=== PATIENT | male | born 1970 | race Caucasian/White ===

== ENCOUNTER 2017-01-01 14:40 | Emergency (ER) | payer MEDICARE, MEDICAID ==
[~2017-01-01] VITALS: Ht 175.3 cm; Wt 91.6 kg
[2017-01-01] MEDS ORDERED: CLIN150C17 (15:00)
[2017-01-01] MEDS ORDERED: DIAZ2TAB2 (15:00)
[2017-01-01] MEDS ORDERED: CITA40TA11 (15:00)
[2017-01-01] MEDS ORDERED: RANI150T11 (15:00)
[2017-01-01] MEDS ORDERED: POTA20TA15 (15:00)
[2017-01-01] MEDS ORDERED: LAMO200T (15:00)
[2017-01-01] MEDS ORDERED: CARV6.252 (15:00)
[2017-01-01] MEDS ORDERED: BENZTROPINE (15:00)
[2017-01-01] MEDS ORDERED: BUSP10TA95 (15:00)
[2017-01-01] MEDS ORDERED: MESA0.37 (15:00)
[2017-01-01] MEDS ORDERED: OMEP40CA36 (15:00)
[2017-01-01] MEDS ORDERED: THIO50TA (15:00)
[2017-01-01] MEDS ORDERED: WARF1TAB6 (15:00)
[2017-01-01] MEDS ORDERED: TRAZ150T72 (15:00)
--- NOTE | 2017-01-01 15:01 | ED Lower Extremity ---
General Chief Complaint: Lower Extremity Stated Complaint: SPIDER BITE L LEG Nursing Triage Note: ARRIVED VIA AMB TO ROOM 06. STATES A MONTH AGO A BLISTER FORMED ON HIS LEFT LOWER LEG. HAS BEEN SEEN TWICE AND HAS BEEN ON TWO DIFFERENT ANTIBIOTICS AND HE DOES NOT THINK IT IS GETTING BETTER. STATES IT WAS DX A SPIDER BITE. Nursing Sepsis Screen: No Definite Risk Source: patient Exam Limitations: no limitations History of Present Illness Time seen by provider: 15:01 Initial Comments PATIENT PRESENTS TO THE ED WITH C/O A WOUND OF THE LLE. 1 MO AGO PATIENT NOTICED A BLISTER ON THE LLE. WAS TOLD BY HIS PCP THAT IT WAS A SPIDER BITE. HE HAS COMPLETED 2 ROUNDS OF AUGMENTIN AND IS NOW ON CLEOCIN 150 MG TID. PATIENT HAS A H/O DVT IN THE LLE. Onset: other (1 MONTH) Pain/Injury Location: left leg Method of Injury: unknown ((POSSIBLE SPIDER BITE)) Modifying Factors: Worse With Other (NO IMPROVEMENT WITH ANTIBIOTICS) Allergies and Home Medications Allergies Coded Allergies: codeine (Verified Allergy, Severe, RASH, 01/01/17) Home Medications Buspirone HCl 10 Mg Tablet, #90 (Reported) Carvedilol 6.25 Mg Tablet, #180 (Reported) Citalopram Hydrobromide 40 Mg Tablet, #30 (Reported) Clindamycin HCl 150 Mg Capsule, #30 (Reported) Clindamycin HCl 300 Mg Capsule, 300 MG PO QID, #28 Ref 0 Prescribed by: ROBERTA NATH on 01/01/17 1521 Dapsone 25 Mg Tablet, 50 MG PO BID, #20 Ref 0 Prescribed by: ROBERTA NATH on 01/01/17 1521 Diazepam 2 Mg Tablet, #60 (Reported) Lamotrigine 200 Mg Tablet, #30 (Reported) Mesalamine 0.375 Gm Cap.er.24h, #120 (Reported) Omeprazole 40 Mg Capsule.dr, #30 (Reported) Oxycodone HCl/Acetaminophen 1 Each Tablet, 1 EACH PO Q4H PRN for pain, #14 Ref 0 Prescribed by: ROBERTA NATH on 01/01/17 1521 Potassium Chloride 20 Meq Tab.er.prt, #90 (Reported) Ranitidine HCl 150 Mg Tablet, #180 (Reported) Thioridazine HCl 50 Mg Tablet, #90 (Reported) Trazodone HCl 150 Mg Tablet, #30 (Reported) Warfarin Sodium 1 Mg Tablet, #120 (Reported) [Benztropine] , #60 (Reported) Constitutional: No chills, No fever, No malaise EENTM: no symptoms reported Respiratory: No cough, No dyspnea on exertion, No orthopnea, No short of breath Cardiovascular: No chest pain, No palpitations Gastrointestinal: no symptoms reported Skin: see HPI, change in color (REDNESS LLE), lesions Psychiatric/Neurological: No Symptoms Reported All Other Systems Reviewed Negative Unless Noted: Yes (Negative excepted noted.) Past Cyulmlu-Aiprap-Yipfog Hx Patient Social History Alcohol Use: Occasionally Uses Recreational Drug Use: No Smoking Status: Current Everyday Smoker Recent Foreign Travel: No Contact w/Someone Who Travel: No Recent Infectious Disease Expo: No Recent Hopitalizations: Yes Surgeries HX Surgeries: Yes Respiratory Hx Respiratory Disorders: Yes Respiratory Disorders: Pulmonary Embolism Cardiovascular Hx Cardiac Disorders: Yes Cardiac Disorders: Deep Vein Thrombosis Neurological Hx Neurological Disorders: No Gastrointestinal Hx Gastrointestinal Disorders: No Musculoskeletal Hx Musculoskeletal Disorders: Yes Musculoskeletal Disorders: Chronic Back Pain Psychosocial Hx Psychiatric Problems: Yes Behavioral Health Disorders: PTSD, Bipolar, Schizophrenia Reviewed Nursing Assessment Reviewed/Agree w Nursing PMH: Yes Family Medical History Significant Family History: DVT/PE Physical Exam Vital Signs Vital Sign - Last 12Hours 01/01/17 14:45 Temp 98.0 Pulse 77 Resp 18 B/P (MAP) 134/89 Pulse Ox 98 Capillary Refill : Less Than 3 Seconds General Appearance: WD/WN, no apparent distress HEENT: PERRL/EOMI, pharynx normal Neck: supple, normal inspection Cardiovascular: normal peripheral pulses, regular rate, rhythm, no murmur Respiratory: lungs clear, normal breath sounds, no respiratory distress, no accessory muscle use Gastrointestinal: normal bowel sounds, non tender, soft Back: normal inspection Hips: bilateral hip non-tender, bilateral hip normal inspection, bilateral hip normal range of motion, bilateral hip no evidence of injury Legs: right leg non-tender, right leg normal inspection, bilateral leg normal range of motion, bilateral leg no evidence of injury, left leg other (2X1.5 CM ULCER WTIH SURROUNDING ERYTHEMA AND WARMTH (CONSISTENT WITH A VENOUS STASIS ULCER) OF THE ANTERIOR DISTAL LLE. NO DRAINAGE NOTED.) Knees: bilateral knee non-tender, bilateral knee normal inspection, bilateral knee normal range of motion, bilateral knee no evidence of injury Ankles: bilateral ankle non-tender, right ankle normal inspection, bilateral ankle normal range of motion, bilateral ankle no evidence of injury, left ankle swelling Feet: bilateral foot non-tender, right foot normal inspection, bilateral foot normal range of motion, bilateral foot no evidence of injury, left foot swelling Neurologic/Tendon: normal sensation, normal motor functions, normal tendon functions, responds to pain, no evidence tendon injury Neurologic/Psychiatric: no motor/sensory deficits, alert, normal mood/affect, oriented x 3 Skin: normal color, warm/dry, other (2X1.5 CM ULCER WTIH SURROUNDING ERYTHEMA AND WARMTH (CONSISTENT WITH A VENOUS STASIS ULCER) OF THE ANTERIOR DISTAL LLE. NO DRAINAGE NOTED.) Progress/Results/Core Measures Results/Orders My Orders Orders - ROBERTA NATH Oxycodone/Apap 5/325mg Tablet (Percocet (01/01/17 15:14) Clindamycin Capsule (Cleocin Capsule) (01/01/17 15:15) Vital Signs/I&O Vital Sign - Last 12Hours 01/01/17 01/01/17 14:45 15:25 Temp 98.0 Pulse 77 77 Resp 18 16 B/P (MAP) 134/89 Pulse Ox 98 98 Blood Pressure Mean: 104 Departure Communication Progress Notes Patient seen and evaluated. Exam findings and history consistent with venous stasis ulcer with cellulitis. Patient follow-up with Dr. Hooper as an outpatient for recheck. Impression Impression: Primary Impression: Cellulitis Qualified Codes: L03.116 - Cellulitis of left lower limb Additional Impression: Venous stasis ulcer Qualified Codes: I87.2 - Venous insufficiency (chronic) (peripheral); L97.821 - Non-pressure chronic ulcer of other part of left lower leg limited to breakdown of skin Disposition: 01 HOME, SELF-CARE Condition: Improved Departure-Patient Inst. Decision time for Depature: 15:16 Referrals: ISABELLE HOOPER DO (PCP/Family) Primary Care Physician Patient Instructions: Cellulitis (Skin Infection), Adult (DC) Add. Discharge Instructions: All discharge instructions reviewed with patient and/or family. Voiced understanding. Medications as directed. Increase clindamycin to 300 mg by mouth four times daily. Elevate the left leg on pillows above the level of the heart. Shower with antibacterial soap. Apply iodine to the wound twice daily. Follow-up with Dr. Hooper this week for recheck. Return to the emergency department for worsened pain, redness, fever, drainage, or any other concerns. Scripts Dapsone (Dapsone) 25 Mg Tablet 50 MG PO BID, #20 TAB 0 Refills Prov: ROBERTA NATH 01/01/17 Clindamycin HCl (Cleocin HCl) 300 Mg Capsule 300 MG PO QID, #28 CAP 0 Refills Prov: ROBERTA NATH 01/01/17 Oxycodone HCl/Acetaminophen (Oxycodone-Acetaminophen 5-325) 1 Each Tablet 1 EACH PO Q4H Y for pain, #14 TAB 0 Refills Prov: ROBERTA NATH 01/01/17 Images Extremities-Lower 1 - Other-See Progress Note ROBERTA NATH Jan 01, 2017 15:01
[2017-01-01] MEDS ORDERED: oxyCODONE/APAP 5/325MG (PERCOCET 5) TABLET PO STA (15:14)
[2017-01-01] MEDS ORDERED: CLINDAMYCIN 150 MG (CLEOCIN) CAP PO ONE (15:15)
[2017-01-01] MEDS ORDERED: DAPS25TA2 PO (15:21)
[2017-01-01] MEDS ORDERED: CLIN300C3 PO (15:21)
[2017-01-01] MEDS ORDERED: OXYC-471 PO (15:21)
[2017-01-01 15:25] VITALS: BP 148/88
== END 2017-01-01 15:25 | disposition home or self-care (01) ==
LOC: EDUNIT# 14:40 → ER 14:42
DX: L03.116 Cellulitis of left lower limb (principal); L97.921 Non-pressure chronic ulcer of unspecified part of left lower leg limited to breakdown of skin; F43.10 Post-traumatic stress disorder, unspecified; F31.9 Bipolar disorder, unspecified; F20.9 Schizophrenia, unspecified; F17.200 Nicotine dependence, unspecified, uncomplicated; Z79.01 Long term (current) use of anticoagulants
CPT/HCPCS: 99283

== ENCOUNTER → 2017-01-18 | Outpatient (CLI) | payer MEDICARE, MEDICAID ==
[~2017-01-18] MED LIST: BENZTROPINE; BUSP10TA95; CARV6.252; CITA40TA11; CLIN150C17; CLIN300C3 PO; DAPS25TA2 PO; DIAZ2TAB2; LAMO200T; MESA0.37; OMEP40CA36; OXYC-471 PO; POTA20TA15; RANI150T11; THIO50TA; TRAZ150T72; WARF1TAB6
== END ==
LOC: WOUNDCARE 13:53
PROVIDERS: ATTEND Surgery
DX: L97.222 Non-pressure chronic ulcer of left calf with fat layer exposed (principal); I87.332 Chronic venous hypertension (idiopathic) with ulcer and inflammation of left lower extremity; I70.242 Atherosclerosis of native arteries of left leg with ulceration of calf; D68.51 Activated protein C resistance; T65.222A Toxic effect of tobacco cigarettes, intentional self-harm, initial encounter
CPT/HCPCS: 11042; 87070; 87075; 87205

== ENCOUNTER → 2017-01-18 | Outpatient (CLI) | payer MEDICARE, MEDICAID ==
[2017-01-18 16:13] LABS: BASOPHILS # (AUTO) 0.2 10^3/uL (0.0-0.1); BASOPHILS % (AUTO) 2 % (0-10); EOSINOPHILS # (AUTO) 0.5 10^3/uL (0.0-0.3); EOSINOPHILS % (AUTO) 4 % (0-10); LYMPHOCYTES # (AUTO) 5.5 X 10^3 (1.0-4.0); LYMPHOCYTES % (AUTO) 43 % (12-44); MEAN CORPUSCULAR HEMOGLOBIN 27 PG (25-34); MEAN CORPUSCULAR HGB CONC 35 G/DL (32-36); MEAN CORPUSCULAR VOLUME 79 FL (80-99); MEAN PLATELET VOLUME 9.2 FL (7.4-10.4); MONOCYTES # (AUTO) 1.6 X 10^3 (0.0-1.0); MONOCYTES % (AUTO) 13 % (0-12); NEUTROPHILS # (AUTO) 4.9 X 10^3 (1.8-7.8); NEUTROPHILS % (AUTO) 39 % (42-75); PLATELET COUNT 512 10^3/uL (130-400); RED CELL DISTRIBUTION WIDTH 17.8 % (10.0-14.5); WHITE BLOOD COUNT 12.8 10^3/uL (4.3-11.0)
[2017-01-18 16:38] LABS: ALANINE AMINOTRANSFERASE 15 U/L (0-55); ALBUMIN 3.6 GM/DL (3.2-4.5); ANION GAP 11 MMOL/L (5-14); ASPARTATE AMINO TRANSFERASE 19 U/L (5-34); BILIRUBIN,TOTAL 0.6 MG/DL (0.1-1.0); BLOOD UREA NITROGEN 6 MG/DL (7-18); BUN/CREATININE RATIO 6; CARBON DIOXIDE 27 MMOL/L (21-32); CHLORIDE 99 MMOL/L (98-107); CREATININE SERUM 0.99 MG/DL (0.60-1.30); GFR ESTIMATED > 60; GLUCOSE 86 MG/DL (70-105); POTASSIUM 4.1 MMOL/L (3.6-5.0); SODIUM 137 MMOL/L (135-145); TOTAL PROTEIN 7.4 GM/DL (6.4-8.2)
== END ==
LOC: LAB 15:49
PROVIDERS: ATTEND Surgery
DX: L97.222 Non-pressure chronic ulcer of left calf with fat layer exposed (principal); I87.332 Chronic venous hypertension (idiopathic) with ulcer and inflammation of left lower extremity; I70.242 Atherosclerosis of native arteries of left leg with ulceration of calf; D68.51 Activated protein C resistance; F17.210 Nicotine dependence, cigarettes, uncomplicated
CPT/HCPCS: 36415; 80053; 85025

== ENCOUNTER → 2017-01-30 | Outpatient (CLI) | payer MEDICARE, MEDICAID | LOC: WOUNDCARE 10:10 | PROVIDERS: ATTEND Surgery | DX: L97.222 Non-pressure chronic ulcer of left calf with fat layer exposed (principal); I87.332 Chronic venous hypertension (idiopathic) with ulcer and inflammation of left lower extremity; I70.242 Atherosclerosis of native arteries of left leg with ulceration of calf; D68.51 Activated protein C resistance; T65.222A Toxic effect of tobacco cigarettes, intentional self-harm, initial encounter | CPT/HCPCS: 11042 ==

== ENCOUNTER → 2017-02-01 | Outpatient (CLI) | payer MEDICARE, MEDICAID ==
--- NOTE | 2017-02-01 18:31 | Diagnostic Imaging Report ---
PROCEDURE: US Bilateral lower extremity arterial. TECHNIQUE: Multiple real-time grayscale images are obtained through both lower extremity arterial systems with color Doppler imaging and color Doppler spectral analysis. INDICATION: 46-year-old male with osteoporosis, left leg wound. COMPARISONS: None. TECHNIQUE: There is triphasic flow in the common femoral and superficial femoral arteries bilaterally with biphasic flow in the profunda femoris. There is biphasic flow in both popliteal arteries, anterior tibial and posterior tibial arteries. Minimal segmental plaquing is seen but no evidence of hemodynamically significant stenosis present. IMPRESSION: Triphasic and biphasic nonflow-limiting flow seen in both lower extremities. Dictated by: Dictated on workstation # [id number]
== END ==
LOC: RAD 16:44
PROVIDERS: ATTEND Surgery
DX: L97.222 Non-pressure chronic ulcer of left calf with fat layer exposed (principal); I87.332 Chronic venous hypertension (idiopathic) with ulcer and inflammation of left lower extremity; I70.242 Atherosclerosis of native arteries of left leg with ulceration of calf; D68.51 Activated protein C resistance; Z72.0 Tobacco use
CPT/HCPCS: 93925

== ENCOUNTER → 2017-02-06 | Outpatient (CLI) | payer MEDICARE, MEDICAID | LOC: WOUNDCARE 11:16 | PROVIDERS: ATTEND Surgery | DX: L97.222 Non-pressure chronic ulcer of left calf with fat layer exposed (principal); I87.332 Chronic venous hypertension (idiopathic) with ulcer and inflammation of left lower extremity; D68.51 Activated protein C resistance; T65.222A Toxic effect of tobacco cigarettes, intentional self-harm, initial encounter | CPT/HCPCS: 11042 ==

== ENCOUNTER → 2017-02-13 | Outpatient (CLI) | payer MEDICARE, MEDICAID | LOC: WOUNDCARE 11:42 | PROVIDERS: ATTEND Surgery | DX: L97.222 Non-pressure chronic ulcer of left calf with fat layer exposed (principal); I87.332 Chronic venous hypertension (idiopathic) with ulcer and inflammation of left lower extremity; D68.51 Activated protein C resistance; T65.222A Toxic effect of tobacco cigarettes, intentional self-harm, initial encounter | CPT/HCPCS: 11042 ==

== ENCOUNTER → 2017-02-20 | Outpatient (CLI) | payer MEDICARE, MEDICAID | LOC: WOUNDCARE 11:23 | PROVIDERS: ATTEND Surgery | DX: L97.222 Non-pressure chronic ulcer of left calf with fat layer exposed (principal); I87.332 Chronic venous hypertension (idiopathic) with ulcer and inflammation of left lower extremity; D68.51 Activated protein C resistance; T65.222A Toxic effect of tobacco cigarettes, intentional self-harm, initial encounter | CPT/HCPCS: 99212 ==

== ENCOUNTER 2019-11-25 18:30 | Inpatient (IN) | payer MEDICARE, MEDICAID ==
[~2019-11-25] VITALS: Ht 175.3 cm; Wt 74.6 kg
[~2019-11-25 18:30] MED LIST changes: -LAMO200T; +LAMO200T5; +OMEP40CA27; -OMEP40CA36; -WARF1TAB6; +WARF1TAB82
[2019-11-25] MEDS ORDERED: ASPIRIN 81 MG CHEW (CHILDREN'S ASA) PO ONE (18:45)
--- NOTE | 2019-11-25 18:56 | ED EENT ---
History of Present Illness General Stated Complaint: SOA Source: patient Exam Limitations: no limitations History of Present Illness Date Seen by Provider: Nov 25, 2019 Time Seen by Provider: 18:54 Initial Comments To ER with reports of shortness of breath for the past few days. He was diagnosed with thrush and strep throat, given 3 different antibiotics but no improvement. He's been swabbed for Covid twice, the first one negative. Today he noticed some unusual sounds when he was breathing. He is unable to eat because he begins to choke when he tries to swallow, he feels a lump in his throat. Timing/Duration: last week Severity: moderate Associated Symptoms: poor fluid intake, poor solids intake Allergies and Home Medications Allergies Coded Allergies: codeine (Verified Allergy, Severe, RASH, 01/01/17) Home Medications Clindamycin HCl 300 Mg Capsule, 300 MG PO QID Prescribed by: ROBERTA NATH on 01/01/17 1521 Dapsone 25 Mg Tablet, 50 MG PO BID Prescribed by: ROBERTA NATH on 01/01/17 1521 Oxycodone HCl/Acetaminophen 1 Each Tablet, 1 EACH PO Q4H PRN for pain Prescribed by: ROBERTA NATH on 01/01/17 1521 Patient Home Medication List Home Medication List Reviewed: Yes Review of Systems Review of Systems Constitutional: see HPI Eyes: No Symptoms Reported Nose: no symptoms reported Mouth: no symptoms reported Throat: see HPI Respiratory: no symptoms reported Cardiovascular: no symptoms reported Musculoskeletal: no symptoms reported Skin: no symptoms reported Neurological: No Symptoms Reported Hematologic/Lymphatic: No Symptoms Reported Immunological/Allergic: no symptoms reported Past Zhbnhqv-Cavhil-Fasjis Hx Patient Social History Recent Hopitalizations: Yes Past Medical History Surgeries: Yes (SPLEENECTOMY, VENA CAVA FILTER) Respiratory: No Pulmonary Embolism Cardiac: No Deep Vein Thrombosis Neurological: No Genitourinary: No Gastrointestinal: No Musculoskeletal: Yes Chronic Back Pain Endocrine: No Cancer: No Psychosocial: Yes PTSD, Bipolar, Schizophrenia Family Medical History DVT/PE Physical Exam Vital Signs Vital Signs - First Documented 11/25/19 18:43 Temp 37.3 Pulse 110 Resp 30 B/P (MAP) 181/102 (128) Pulse Ox 97 O2 Delivery Nasal Cannula O2 Flow Rate 2.00 Height, Weight, BMI Height: 5'9.00" Weight: 202lbs. oz. 91.878046qr; BMI Method:Stated General Appearance: WD/WN, moderate distress (low pitched inspiratory stridor. Breathing easier leaning forward, no drooling and he does swallow his own secretions but when given a glass of water he begins choking on it when he attempts to swallow. Concern for epiglottitis. Racemic epinephrine and Solu- Medrol ordered.) Eyes: bilateral eye normal inspection, bilateral eye PERRL, bilateral eye EOMI Ears: bilateral ear auricle normal, bilateral ear canal normal, bilateral ear TM normal Mouth/Throat: normal mouth inspection, pharynx normal Neck: non-tender, full range of motion Gastrointestinal: normal bowel sounds, non tender Neurologic/Psychiatric: alert, normal mood/affect, oriented x 3 Skin: normal color, warm/dry Progress/Results/Core Measures Results/Orders Lab Results Laboratory Tests Test 11/25/19 18:46 11/25/19 18:51 11/25/19 22:42 11/25/19 22:45 Range/Units White Blood Count 24.1 H 4.3-11.0 10^3/uL Red Blood Count 5.30 4.35-5.85 10^6/uL Hemoglobin 14.4 13.3-17.7 G/DL Hematocrit 40 40-54 % Mean Corpuscular Volume 76 L 80-99 FL Mean Corpuscular Hemoglobin 27 25-34 PG Mean Corpuscular Hemoglobin Concent 36 32-36 G/DL Red Cell Distribution Width 16.7 H 10.0-14.5 % Platelet Count 453 H 130-400 10^3/uL Mean Platelet Volume 12.4 H 7.4-10.4 FL Neutrophils (%) (Auto) 75 42-75 % Lymphocytes (%) (Auto) 13 12-44 % Monocytes (%) (Auto) 11 0-12 % Eosinophils (%) (Auto) 1 0-10 % Basophils (%) (Auto) 0 0-10 % Neutrophils # (Auto) 18.0 H 1.8-7.8 X 10^3 Lymphocytes # (Auto) 3.2 1.0-4.0 X 10^3 Monocytes # (Auto) 2.7 H 0.0-1.0 X 10^3 Eosinophils # (Auto) 0.1 0.0-0.3 10^3/uL Basophils # (Auto) 0.1 0.0-0.1 10^3/uL Neutrophils % (Manual) 78 % Lymphocytes % (Manual) 13 % Monocytes % (Manual) 8 % Band Neutrophils 1 % [place] Cells SLIGHT Prothrombin Time 26.3 H 12.2-14.7 SEC INR Comment 2.4 H 0.8-1.4 Activated Partial Thromboplast Time 49 H 24-35 SEC D-Dimer 0.35 0.00-0.49 UG/ML Sodium Level 136 135-145 MMOL/L Potassium Level 3.8 3.6-5.0 MMOL/L Chloride Level 96 L 98-107 MMOL/L Carbon Dioxide Level 24 21-32 MMOL/L Anion Gap 16 H 5-14 MMOL/L Blood Urea Nitrogen 7 7-18 MG/DL Creatinine 0.80 0.60-1.30 MG/DL Estimat Glomerular Filtration Rate > 60 BUN/Creatinine Ratio 9 Glucose Level 417 *H 70-105 MG/DL Calcium Level 10.0 8.5-10.1 MG/DL Corrected Calcium 10.1 8.5-10.1 MG/DL Magnesium Level 2.0 1.6-2.4 MG/DL Total Bilirubin 0.8 0.1-1.0 MG/DL Aspartate Amino Transf (AST/SGOT) 20 5-34 U/L Alanine Aminotransferase (ALT/SGPT) 26 0-55 U/L Alkaline Phosphatase 170 H 40-136 U/L Myoglobin 61.8 10.0-92.0 NG/ML Troponin I < 0.028 <0.028 NG/ML B-Type Natriuretic Peptide 117.6 H <100.0 PG/ML Total Protein 7.9 6.4-8.2 GM/DL Albumin 3.9 3.2-4.5 GM/DL Blood Gas Puncture Site RIGHT RADIAL Blood Gas Patient Temperature 37.3 Arterial Blood pH 7.40 7.37-7.43 Arterial Blood Partial Pressure CO2 48 H 35-45 MMHG Arterial Blood Partial Pressure O2 66 L 79-93 MMHG Arterial Blood HCO3 30 H 23-27 MMOL/L Arterial Blood Total CO2 31.4 H 21.0-31.0 MMOL/L Arterial Blood Oxygen Saturation 92 L 94-100 % Arterial Blood Base Excess 5.1 H -2.5-2.5 MMOL/L Joshua Test POSITIVE Blood Gas Ventilator Setting NO Blood Gas Inspired Oxygen 2 Glucometer 358 H 70-110 MG/DL Urine Color YELLOW Urine Clarity CLEAR Urine pH 5.5 5-9 Urine Specific [place] <=1.005 1.016-1.022 Urine Protein TRACE H NEGATIVE Urine Glucose (UA) 3+ H NEGATIVE Urine Ketones 3+ H NEGATIVE Urine Nitrite NEGATIVE NEGATIVE Urine Bilirubin NEGATIVE NEGATIVE Urine Urobilinogen 0.2 < = 1.0 MG/DL Urine Leukocyte Esterase NEGATIVE NEGATIVE Urine RBC (Auto) 1+ H NEGATIVE Urine RBC RARE /HPF Urine WBC NONE /HPF Urine Crystals NONE /LPF Urine Bacteria NEGATIVE /HPF Urine Casts NONE /LPF Urine Mucus NEGATIVE /LPF Urine Culture Indicated NO Urine Opiates Screen POSITIVE H NEGATIVE Urine Oxycodone Screen NEGATIVE NEGATIVE Urine Methadone Screen NEGATIVE NEGATIVE Urine Propoxyphene Screen NEGATIVE NEGATIVE Urine Barbiturates Screen NEGATIVE NEGATIVE Ur Tricyclic Antidepressants Screen NEGATIVE NEGATIVE Urine Phencyclidine Screen NEGATIVE NEGATIVE Urine Amphetamines Screen NEGATIVE NEGATIVE Urine Methamphetamines Screen NEGATIVE NEGATIVE Urine Benzodiazepines Screen POSITIVE H NEGATIVE Urine Cocaine Screen NEGATIVE NEGATIVE Urine Cannabinoids Screen POSITIVE H NEGATIVE Test 11/25/19 22:58 Range/Units Lactic Acid Level 1.01 0.50-2.00 MMOL/L My Orders Orders - VALENTIN GUERRERO [employer]ATOR Cbc With Automated Diff (11/25/19 18:35) Magnesium (11/25/19 18:35) Chest 1 View, Ap/Pa Only (11/25/19 18:35) Ekg Tracing (11/25/19 18:35) Comprehensive Metabolic Panel (11/25/19 18:35) Myoglobin Serum (11/25/19 18:35) Protime With Inr (11/25/19 18:35) Partial Thromboplastin Time (11/25/19 18:35) O2 (11/25/19 18:35) Monitor-Rhythm Ecg Trace Only (11/25/19 18:35) Lipid Panel (11/26/19 06:00) Ed Iv/Invasive Line Start (11/25/19 18:35) BNP (11/25/19 18:35) Fibrin Degradation Products (11/25/19 18:35) Aspirin Chewable Tablet (Baby Aspirin Ch (11/25/19 18:45) Rt Epinephrine (Racemic Epinephrine 2.25 (11/25/19 19:00) Methylprednisolone Sod Succ (Solu-Medrol (11/25/19 19:00) Lorazepam Injection (Ativan Injection) (11/25/19 19:00) Soft Tissue Neck (11/25/19 18:57) Iohexol Injection (Omnipaque 350 Mg/Ml 1 (11/25/19 19:00) Received Contrast (Hold Metformin- Contr (11/25/19 19:00) Ns (Ivpb) (Sodium Chloride 0.9% Ivpb Bag (11/25/19 19:00) Ceftriaxone For Iv Use (Rocephin For I (11/25/19 19:00) Arterial Blood Gas (11/25/19 18:51) Troponin I (11/25/19 18:46) Manual Differential (11/25/19 18:46) Ns Iv 1000 Ml (Sodium Chloride 0.9%) (11/25/19 19:30) Ct Neck (Soft Tissue) W (11/25/19 19:36) Lidocaine 4% 5 Ml (Xylocaine 4%) (11/25/19 20:15) Succinylcholine Injection (Succinylcholi (11/25/19 20:02) Propofol Injection (Diprivan Injection) (11/25/19 20:02) Ketamine Syringe (Ed Only) (Ketamine Syr (11/25/19 20:03) Medications Given in ED Current Medications Medications Dose Ordered Sig/Anatoly Route Start Time Stop Time Status Last Admin Dose Admin Aspirin 324 mg ONCE ONCE PO 11/25/19 18:45 11/25/19 18:46 DC 11/25/19 18:50 324 MG Ceftriaxone Sodium 2000 mg/ Sterile Water 20 ml @ 240 mls/hr ONCE ONCE IV 11/25/19 19:00 11/25/19 19:04 DC 11/25/19 19:37 240 MLS/HR Epinephrine 0.25 ml ONCE ONCE INH 11/25/19 19:00 11/25/19 19:01 DC 11/25/19 18:57 0.25 ML Iohexol 75 ml ONCE ONCE IV 11/25/19 19:00 11/25/19 19:01 DC 11/25/19 20:53 75 ML Lorazepam 0.5 mg ONCE PRN IVP 11/25/19 19:00 11/25/19 19:04 0.5 MG Methylprednisolone Sodium Succinate 125 mg ONCE ONCE IVP 11/25/19 19:00 11/25/19 19:01 DC 11/25/19 18:57 125 MG Sodium Chloride 100 ml ONCE ONCE IV 11/25/19 19:00 11/25/19 19:01 DC 11/25/19 20:53 100 ML Vital Signs/I&O 11/25/19 11/25/19 11/25/19 11/25/19 18:43 18:45 20:30 21:05 Temp 37.3 37.3 Pulse 110 105 92 Resp 30 25 B/P (MAP) 181/102 (128) 157/85 (128) Pulse Ox 97 97 92 O2 Delivery Nasal Cannula Nasal Cannula Nasal Cannula O2 Flow Rate 2.00 2.00 2.00 11/25/19 11/25/19 11/25/19 11/25/19 21:15 21:30 21:45 22:00 Temp 36.6 Pulse 96 92 89 86 Resp 34 23 36 36 B/P (MAP) 122/85 (97) 174/84 (114) 147/75 (99) 148/71 (96) Pulse Ox 96 94 95 96 O2 Delivery Nasal Cannula Nasal Cannula Nasal Cannula Nasal Cannula O2 Flow Rate 1.00 1.00 1.00 1.00 Departure Communication (Admissions) [facility], [place] NAME: [facility] REC#: [id number] PT STATUS: ADM IN : 1970 PHYSICIAN: VALENTIN GUERRERO APRN ADMIT DATE: 11/25/19/ICU Signed Date of Exam:11/25/19 CT NECK (SOFT TISSUE) W PROCEDURE: CT neck soft tissue with contrast. TECHNIQUE: Multiple contiguous axial images were obtained through the neck after the administration of contrast. Auto Exposure Controls were utilized during the CT exam to meet ALARA standards for radiation dose reduction. INDICATION: Shortness of air, sore throat COMPARISON: Radiographs from the same date FINDINGS: Parapharyngeal fat is symmetric and well-maintained. The visualized salivary glands are unremarkable. The thyroid gland is unremarkable. The epiglottis is mildly prominent. Small gas collection is identified adjacent to the trachea and esophagus on the right, best seen on series 4, image 67. No definitive connection to either the trachea or esophagus is present, though this appears to conform more to the shape of the esophagus. The true and false vocal cords are unremarkable. Mild mural thickening is noted associated with the most superior aspect of the cervical esophagus with associated small amount of internal fluid. 1.3 x 0.5 cm fluid collection is noted at the expected location of the most proximal esophagus. Mildly prominent bilateral cervical lymph nodes, particularly level II B lymph nodes are present bilaterally. This includes a lymph node on the right which measures up to 2.6 cm near the carotid bifurcation. No additional retropharyngeal fluid collection. No peritonsillar fluid collection. Noncalcified plaque within the left common carotid artery with approximately 40% narrowing. 1.3 cm irregular nodular density within the right upper lobe with extension to the pleural surface. No pneumothorax. Scattered osseous degenerative changes without acute osseous abnormality. Minimal opacification of some inferior left mastoid air cells. Otherwise, the visualized paranasal sinuses are clear. IMPRESSION: Mild mural thickening with associated fluid and edema associated with the most proximal aspect of the esophagus. This is associated with focal soft tissue gas immediately adjacent to the esophagus and trachea at this location. Therefore, this could relate to underlying injury/perforation involving the esophagus or trachea at this location. No definitive tract is identified on this examination. Fluoroscopic esophagram could be performed to evaluate if this relates to an underlying esophageal injury/perforation. Mildly prominent bilateral cervical lymph nodes. A 1.3 x 0.5 cm fluid collection is noted at the expected location of the most proximal esophagus. This is favored to relate to fluid within the esophagus. Phlegmon is an additional consideration. No internal gas to definitively suggest abscess. Additional findings as above. Findings discussed with Dr. Guerrero at 212 on 11/25/2019. Dictated by: Dictated on workstation # [id number] Dict: 11/25/192051 Trans: 11/25/192201 [facility] [id number] Interpreted by: PROSPER BAPTISTE MD Electronically signed by: PROSPER BAPTISTE MD 11/25/192201 ADDENDUM REPORT Impression: Laryngeal abscess is an additional consideration and actually the favored diagnosis. Given adjacent soft tissue gas, tiny esophageal or tracheal perforation should be considered. Otherwise, initial interpretation is unchanged. Findings discussed with Dr. Guerrero at 2206 on 11/25/2019. Dictated by: Dictated on workstation # [id number] Interpreted by: PROSPER BAPTISTE MD Electronically signed by: PROSPER BAPTISTE MD 11/25/19 2210 1937-given Solu-Medrol racemic epinephrine and 0.5 mg of lorazepam, still has low pitched inspiratory stridor. Now spitting into a bucket as he is unable to swallow. I've called [employer]. I planned to intubate but I would like to have them present as I anticipate a difficult airway 2099-Dr Mueller from anesthesia has been here, we reviewed the CT, looks like there is a bit of air parallel to the trachea not contained within the trachea or the esophagus. Because of the displaced anatomy of the airway on the sagittal views he would like to not intubate at this time. We could do a bedside trach but he is maintaining his own airway, talking, INR of 2.4. That being said he does still have some stridor though it has improved from time of arrival.. Will work on transfer to after discussion with Dr mazariegos. 2199- CTS service at capacity and unable to accept. [facility] has no ENT available and cant accept. 2214-spoke with Dr. Cosby from ER at [facility] and Dr. Easley from ENT who accepted the patient but because the patient is already admitted to ICU here He'll need to go to the lean facilitator service instead of ER to ER. Needs to go to a facility with both cardiothoracic and ear nose and throat services. 2234-[facility] called back after talking to the lean facilitator who reports that cardiothoracics does not do esophageal interventions there. I then called [facility] back to see if we could admit this to medicine consult ear nose and throat given the appearance of laryngeal abscess. They'll call me back. (Our ENT here Dr. Small is out of town for the next 48 hours) 2334-Dr Pierce at has accepted pt to MICU. will send by Air. Dr Pierce would also like flagyl. Impression Primary Impression: Airway compromise Additional Impression: Abscess of larynx Disposition: XFER SHT-TRM HOSP Condition: Stable Transfer Transfer Reason: Exceeds level of care Time Spoke to Accepting Phy: 22:16 Departure-Patient Inst. Referrals: ISABELLE REECE DO (PCP/Family) Primary Care Physician VALENTIN GUERRERO APRN Nov 25, 2019 18:56
[2019-11-25] MEDS ORDERED: IOHEXOL 350 MG/ML 100 ML (OMNIPAQUE 350) VIAL IV ONE (19:00)
[2019-11-25] MEDS ORDERED: cefTRIAXone FOR IV USE 2,000 MG in WATER (STERILE) FOR INJECTION 20 ML IV ONE (19:00)
[2019-11-25] MEDS ORDERED: RT-epiNEPHrine (RACEMIC) 2.25% 0.5 ML VIAL INH ONE (19:00)
[2019-11-25] MEDS ORDERED: HOLD METFORMIN - RECEIVED CONTRAST 20 ML VIAL IV SCH (19:00)
[2019-11-25] MEDS ORDERED: LORazepam INJ 2 MG/ML (ATIVAN) VIAL IVP PRN ×2 (19:00→23:45)
[2019-11-25] MEDS ORDERED: NS 100 ML (IVPB) BAG IV ONE (19:00)
[2019-11-25] MEDS ORDERED: methylPREDNISolone 125 MG (Solu-MEDROL) VIAL IVP ONE (19:00)
[2019-11-25 19:06] LABS: BASOPHILS # (AUTO) 0.1 10^3/uL (0.0-0.1); BASOPHILS % (AUTO) 0 % (0-10); EOSINOPHILS # (AUTO) 0.1 10^3/uL (0.0-0.3); EOSINOPHILS % (AUTO) 1 % (0-10); HEMATOCRIT 40 % (40-54); HEMOGLOBIN 14.4 G/DL (13.3-17.7); LYMPHOCYTES # (AUTO) 3.2 X 10^3 (1.0-4.0); LYMPHOCYTES % (AUTO) 13 % (12-44); MEAN CORPUSCULAR HEMOGLOBIN 27 PG (25-34); MEAN CORPUSCULAR HGB CONC 36 G/DL (32-36); MEAN CORPUSCULAR VOLUME 76 FL (80-99); MEAN PLATELET VOLUME 12.4 FL (7.4-10.4); MONOCYTES # (AUTO) 2.7 X 10^3 (0.0-1.0); MONOCYTES % (AUTO) 11 % (0-12); NEUTROPHILS % (AUTO) 75 % (42-75); PLATELET COUNT 453 10^3/uL (130-400); RED CELL DISTRIBUTION WIDTH 16.7 % (10.0-14.5); WHITE BLOOD COUNT 24.1 10^3/uL (4.3-11.0)
[2019-11-25 19:11] LABS: ABG BASE EXCESS 5.1 MMOL/L (-2.5-2.5); ABG OXYGEN SATURATION 92 % (94-100); ABG PCO2 48 MMHG (35-45); ABG PO2 66 MMHG (79-93); ABG TCO2 31.4 MMOL/L (21.0-31.0)
[2019-11-25 19:12] LABS: ALLENS TEST POSITIVE; INSPIRED O2 2; PATIENT TEMP 37.3; VENTILATOR NO
[2019-11-25 19:16] LABS: ALBUMIN 3.9 GM/DL (3.2-4.5); CHLORIDE 96 MMOL/L (98-107); POTASSIUM 3.8 MMOL/L (3.6-5.0); SODIUM 136 MMOL/L (135-145)
[2019-11-25 19:19] LABS: TOTAL PROTEIN 7.9 GM/DL (6.4-8.2)
[2019-11-25 19:20] LABS: CARBON DIOXIDE 24 MMOL/L (21-32); INR 2.4 (0.8-1.4); PROTHROMBIN TIME PATIENT 26.3 SEC (12.2-14.7)
[2019-11-25 19:21] LABS: BILIRUBIN,TOTAL 0.8 MG/DL (0.1-1.0)
[2019-11-25 19:22] LABS: ALKALINE PHOSPHATASE 170 U/L (40-136); GFR ESTIMATED > 60; GLUCOSE 417 MG/DL (70-105)
[2019-11-25 19:23] LABS: BUN/CREATININE RATIO 9
[2019-11-25 19:25] LABS: ALANINE AMINOTRANSFERASE 26 U/L (0-55)
[2019-11-25 19:27] LABS: BAND NEUTROPHILS 1 %; BURR CELLS SLIGHT; LYMPHOCYTES % (MANUAL) 13 %; MONOCYTES % (MANUAL) 8 %; NEUTROPHILS % (MANUAL) 78 %
[2019-11-25] MEDS ORDERED: NS IV 1000 ML 1,000 ML IV SCH (19:30)
--- NOTE | 2019-11-25 19:58 | NUR ---
ZURI Ansari et Dr. Strange in room with pt at this time discussing intubation procedure.
[2019-11-25] MEDS ORDERED: proPOfol 200 MG/20 ML (DIPRIVAN) VIAL IV ONE (20:02)
[2019-11-25] MEDS ORDERED: SUCCINYLCHOLINE INJ 100 MG/5 ML SYR ONE (20:02)
[2019-11-25] MEDS ORDERED: KETAMINE/NaCl 50 MG/5 ML SYRINGE (ED ONLY) ONE (20:03)
--- OUTSIDE RECORDS SUMMARY | 2019-11-25 20:08 | XMS REPORT | Continuity of Care Document ---
Author Organization Unknown Address Unknown Phone Unavailable Allergies Active Description Code Type Severity Reaction Onset Reported/Identified Relationship to Patient Clinical Status Yes codeine [id number] Drug Allergy Severe RASH 01/01/2017 Medications There is no data. 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 01/01/2017 ROBERTA ECKERT Ot F17.200 NICOTINE DEPENDENCE, UNSPECIFIED, UNCOMP 01/01/2017 ROBERTA ECKERT Ot F20.9 SCHIZOPHRENIA, UNSPECIFIED 01/01/2017 ROBERTA ECKERT Ot F31.9 BIPOLAR DISORDER, UNSPECIFIED 01/01/2017 ROBERTA ECKERT Ot F43.10 POST-TRAUMATIC STRESS DISORDER, UNSPECIF 01/01/2017 ROBERTA ECKERT Ot L03.116 CELLULITIS OF LEFT LOWER LIMB 01/01/2017 ROBERTA ECKERT Ot L97.921 NON-PRS CHR UL UNSP PRT OF L LOW LEG LI 01/01/2017 ROBERTA ECKERT Ot Z04.3 ENCOUNTER FOR EXAM AND OBSERVATION FOLLO 01/01/2017 ROBERTA ECKERT Ot Z79.01 [facility] (CURRENT) USE OF ANTICOAGULANT 01/25/2017 VINCENZO MORALES MD Ot D68.51 ACTIVATED PROTEIN C RESISTANCE 01/25/2017 VINCENZO MORALES MD Ot I70.242 [place] [place] ARTERIES OF LEFT LEG W ULC 01/25/2017 VINCENZO MORALES MD Ot I87.332 CHRONIC VENOUS HTN W ULCER AND INFLAMMAT 01/25/2017 VINCENZO MORALES MD Ot L97.222 NON-PRESSURE CHRONIC ULCER OF LEFT CALF 01/25/2017 VINCENZO MORALES MD Ot T65.222A TOXIC EFFECT OF TOBACCO CIGARETTES, SELF 01/30/2017 VINCENZO MORALES MD, Ot L97.222 NON-PRESSURE CHRONIC ULCER OF LEFT CALF 01/30/2017 Ot 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 01/30/2017 VINCENZO MORALES MD, Ot D68.51 ACTIVATED PROTEIN C RESISTANCE 01/30/2017 VINCENZO MORALES MD Ot I70.242 [place] [place] ARTERIES OF LEFT LEG W [facility] 01/30/2017 VINCENZO MORALES MD Ot I87.332 CHRONIC VENOUS HTN W ULCER AND INFLAMMAT 01/30/2017 VINCENZO MORALES MD Ot L97.222 NON-PRESSURE CHRONIC ULCER OF LEFT CALF 01/30/2017 VINCENZO MORALES MD Ot T65.222A TOXIC EFFECT OF TOBACCO CIGARETTES, SELF 01/30/2017 VINCENZO MORALES MD, Ot D68.51 ACTIVATED PROTEIN C RESISTANCE 01/30/2017 VINCENZO MORALES MD, Ot F17.210 NICOTINE DEPENDENCE, CIGARETTES, UNCOMPL 01/30/2017 VINCENZO MORALES MD, Ot I70.242 [place] ARTERIES OF LEFT LEG W [facility] 01/30/2017 VINCENZO MORALES MD Ot I87.332 CHRONIC VENOUS HTN W ULCER AND INFLAMMAT 01/30/2017 VINCENZO MORALES MD Ot L97.222 NON-PRESSURE CHRONIC ULCER OF LEFT CALF 01/30/2017 VINCENZO MORALES MD Ot L97.222 NON-PRESSURE CHRONIC ULCER OF LEFT CALF 01/31/2017 VINCENZO MORALES MD Ot L97.222 NON-PRESSURE CHRONIC ULCER OF LEFT CALF 01/31/2017 VINCENZO MORALES MD Ot L97.222 NON-PRESSURE CHRONIC ULCER OF LEFT CALF 02/01/2017 Ot 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 02/01/2017 VINCENZO MORALES MD, Ot D68.51 ACTIVATED PROTEIN C RESISTANCE 02/01/2017 VINCENZO MORALES MD Ot I70.242 [place] ARTERIES OF LEFT LEG W [facility] 02/01/2017 VINCENZO MORALES MD Ot I87.332 CHRONIC VENOUS HTN W ULCER AND INFLAMMAT 02/01/2017 VINCENZO MORALES MD Ot L97.222 NON-PRESSURE CHRONIC ULCER OF LEFT CALF 02/01/2017 VINCENZO MORALES MD, Ot T65.222A TOXIC EFFECT OF TOBACCO CIGARETTES, SELF 02/01/2017 VINCNEZO MORALES MD, Ot D68.51 ACTIVATED PROTEIN C RESISTANCE 02/01/2017 VINCENZO MORALES MD Ot F17.210 NICOTINE DEPENDENCE, CIGARETTES, UNCOMPL 02/01/2017 VINCENZO MORALES MD Ot I70.242 [place] ARTERIES OF LEFT LEG W [facility] 02/01/2017 VINCENZO MORALES MD, Ot I87.332 CHRONIC VENOUS HTN W ULCER AND INFLAMMAT 02/01/2017 VINCENZO MORALES MD, Ot L97.222 NON-PRESSURE CHRONIC ULCER OF LEFT CALF 02/01/2017 VINCENZO MORALES MD, Ot D68.51 ACTIVATED PROTEIN C RESISTANCE 02/01/2017 VINCENZO MORALES MD, Ot I70.242 [place] ARTERIES OF LEFT LEG W [facility] 02/01/2017 VINCENZO MORALES MD, Ot I87.332 CHRONIC VENOUS HTN W ULCER AND INFLAMMAT 02/01/2017 VINCENZO MORALES MD, Ot L97.222 NON-PRESSURE CHRONIC ULCER OF LEFT CALF 02/01/2017 VINCENZO MORALES MD, Ot T65.222A TOXIC EFFECT OF TOBACCO CIGARETTES, SELF 02/01/2017 VINCENZO MORALES MD, Ot L97.222 NON-PRESSURE CHRONIC ULCER OF LEFT CALF 02/06/2017 VINCENZO MORALES MD, Ot D68.51 ACTIVATED PROTEIN C RESISTANCE 02/06/2017 VINCENZO MORALES MD, Ot I70.242 [place] ARTERIES OF LEFT LEG W [facility] 02/06/2017 VINCENZO MORALES MD, Ot I87.332 CHRONIC VENOUS HTN W ULCER AND INFLAMMAT 02/06/2017 VINCENZO MORALES MD, Ot L97.222 NON-PRESSURE CHRONIC ULCER OF LEFT CALF 02/06/2017 VINCENZO MORALES MD Ot Z72 .0 TOBACCO USE 02/07/2017 VINCENZO MORALES MD, Ot D68.51 ACTIVATED PROTEIN C RESISTANCE 02/07/2017 VINCENZO MORALES MD, Ot I70.242 [place] ARTERIES OF LEFT LEG W [facility] 02/07/2017 VINCENZO MORALES MD, Ot I87.332 CHRONIC VENOUS HTN W ULCER AND INFLAMMAT 02/07/2017 VINCENZO MORALES MD, Ot L97.222 NON-PRESSURE CHRONIC ULCER OF LEFT CALF 02/07/2017 VINCENZO MORALES MD Ot Z72 .0 TOBACCO USE 02/10/2017 VINCENZO MORALES MD, Ot D68.51 ACTIVATED PROTEIN C RESISTANCE 02/10/2017 VINCENZO MORALES MD Ot I70.242 [place] ARTERIES OF LEFT LEG W [facility] 02/10/2017 VINCENZO MORALES MD Ot I87.332 CHRONIC VENOUS HTN W ULCER AND INFLAMMAT 02/10/2017 VINCENZO MORALES MD Ot L97.222 NON-PRESSURE CHRONIC ULCER OF LEFT CALF 02/10/2017 VINCENZO MORALES MD, Ot T65.222A TOXIC EFFECT OF TOBACCO CIGARETTES, SELF 02/10/2017 VINCENZO MORALES MD, Ot D68.51 ACTIVATED PROTEIN C RESISTANCE 02/10/2017 VINCENZO MORALES MD, Ot F17.210 NICOTINE DEPENDENCE, CIGARETTES, UNCOMPL 02/10/2017 VINCENZO MORALES MD Ot I70.242 [place] ARTER[place] OF LEFT LEG W ULC 02/10/2017 VINCENZO MORALES MD, Ot I87.332 CHRONIC VENOUS HTN W ULCER AND INFLAMMAT 02/10/2017 VINCENZO MORALES MD, Ot L97.222 NON-PRESSURE CHRONIC ULCER OF LEFT CALF 02/15/2017 VINCENZO MORALES MD, Ot L97.222 NON-PRESSURE CHRONIC ULCER OF LEFT CALF 02/17/2017 VINCENZO MORALES MD, Ot D68.51 ACTIVATED PROTEIN C RESISTANCE 02/17/2017 VINCENZO MORALES MD, Ot I70.242 [place] ARTERIES OF LEFT LEG W ULC 02/17/2017 VINCENZO MORALES MD, Ot I87.332 CHRONIC VENOUS HTN W ULCER AND INFLAMMAT 02/17/2017 VINCENZO MORALES MD, Ot L97.222 NON-PRESSURE CHRONIC ULCER OF LEFT CALF 02/17/2017 VINCENZO MORALES MD, Ot T65.222A TOXIC EFFECT OF TOBACCO CIGARETTES, SELF 02/17/2017 VINCENZO MORALES MD, Ot D68.51 ACTIVATED PROTEIN C RESISTANCE 02/17/2017 VINCENZO MORALES MD, Ot F17.210 NICOTINE DEPENDENCE, CIGARETTES, UNCOMPL 02/17/2017 VINCENZO MORALES MD Ot I70.242 [place] ARTERIES OF LEFT LEG W ULC 02/17/2017 VINCENZO MORALES MD Ot I87.332 CHRONIC VENOUS HTN W ULCER AND INFLAMMAT 02/17/2017 VINCENZO MORALES MD, Ot L97.222 NON-PRESSURE CHRONIC ULCER OF LEFT CALF 02/22/2017 VINCENZO MORALES MD, Ot D68.51 ACTIVATED PROTEIN C RESISTANCE 02/22/2017 VINCENZO MORALES MD Ot I87.332 CHRONIC VENOUS HTN W ULCER AND INFLAMMAT 02/22/2017 VINCENZO MORALES MD, Ot L97.222 NON-PRESSURE CHRONIC ULCER OF LEFT CALF 02/22/2017 VINCENZO MORALES MD, Ot T65.222A TOXIC EFFECT OF TOBACCO CIGARETTES, SELF 02/23/2017 VINCENZO MORALES MD, Ot D68.51 ACTIVATED PROTEIN C RESISTANCE 02/23/2017 VINCENZO MORALES MD, Ot I70.242 [place] ARTERIES OF LEFT LEG W [facility] 02/23/2017 VINCENZO MORALES MD, Ot I87.332 CHRONIC VENOUS HTN W ULCER AND INFLAMMAT 02/23/2017 VINCENZO MORALES MD, Ot L97.222 NON-PRESSURE CHRONIC ULCER OF LEFT CALF 02/23/2017 VINCENZO MORALES MD, Ot T65.222A TOXIC EFFECT OF TOBACCO CIGARETTES, SELF 02/27/2017 VINCENZO MORALES MD, Ot D68.51 ACTIVATED PROTEIN C RESISTANCE 02/27/2017 VINCENZO MORALES MD, Ot I70.242 [place] ARTERIES OF LEFT LEG W [facility] 02/27/2017 VINCENZO MORALES MD, Ot I87.332 CHRONIC VENOUS HTN W ULCER AND INFLAMMAT 02/27/2017 VINCENZO MORALES MD, Ot L97.222 NON-PRESSURE CHRONIC ULCER OF LEFT CALF 02/27/2017 VINCENZO MORALES MD, Ot Z72 .0 TOBACCO USE 03/02/2017 VINCENZO MORALES MD, Ot D68.51 ACTIVATED PROTEIN C RESISTANCE 03/02/2017 VINCENZO MORALES MD, Ot I70.242 [place] ARTERIES OF LEFT LEG W [facility] 03/02/2017 VINCENZO MORALES MD, Ot I87.332 CHRONIC VENOUS HTN W ULCER AND INFLAMMAT 03/02/2017 VINCENZO MORALES MD, Ot L97.222 NON-PRESSURE CHRONIC ULCER OF LEFT CALF 03/02/2017 VINCENZO MORALES MD, Ot T65.222A TOXIC EFFECT OF TOBACCO CIGARETTES, SELF 03/02/2017 VINCENZO MORALES MD, Ot D68.51 ACTIVATED PROTEIN C RESISTANCE 03/02/2017 VINCENZO MORALES MD, Ot I70.242 [place] ARTERIES OF LEFT LEG W [facility] 03/02/2017 VINCENZO MORALES MD, Ot I87.332 CHRONIC VENOUS HTN W ULCER AND INFLAMMAT 03/02/2017 VINCENZO MORALES MD, Ot L97.222 NON-PRESSURE CHRONIC ULCER OF LEFT CALF 03/02/2017 VINCENZO MORALES MD, Ot T65.222A TOXIC EFFECT OF TOBACCO CIGARETTES, SELF 03/02/2017 VINCENZO MORALES MD, Ot D68.51 ACTIVATED PROTEIN C RESISTANCE 03/02/2017 VINCENZO MORALES MD, Ot I87.332 CHRONIC VENOUS HTN W ULCER AND INFLAMMAT 03/02/2017 VINCENZO MORALES MD, Ot L97.222 NON-PRESSURE CHRONIC ULCER OF LEFT CALF 03/02/2017 VINCENZO MORALES MD, Ot T65.222A TOXIC EFFECT OF TOBACCO CIGARETTES, SELF 03/03/2017 VINCENZO MORALES MD, Ot D68.51 ACTIVATED PROTEIN C RESISTANCE 03/03/2017 VINCENZO MORALES MD, Ot I70.242 [place]CL [place] ARTERIES OF LEFT LEG W ULC 03/03/2017 VINCENZO MORALES MD, Ot I87.332 CHRONIC VENOUS HTN W ULCER AND INFLAMMAT 03/03/2017 VINCENZO MORALES MD, Ot L97.222 NON-PRESSURE CHRONIC ULCER OF LEFT CALF 03/03/2017 VINCENZO MORALES MD, Ot Z72 .0 TOBACCO USE 03/08/2017 VINCENZO MORALES MD, Ot D68.51 ACTIVATED PROTEIN C RESISTANCE 03/08/2017 VINCENZO MORALES MD, Ot I87.332 CHRONIC VENOUS HTN W ULCER AND INFLAMMAT 03/08/2017 VINCENZO MORALES MD, Ot L97.222 NON-PRESSURE CHRONIC ULCER OF LEFT CALF 03/08/2017 VINCENZO MORALES MD, Ot T65.222A TOXIC EFFECT OF TOBACCO CIGARETTES, SELF 03/13/2017 VINCENZO MORALES MD, Ot D68.51 ACTIVATED PROTEIN C RESISTANCE 03/13/2017 VINCENZO MORALES MD Ot I87.332 CHRONIC VENOUS HTN W ULCER AND INFLAMMAT 03/13/2017 VINCENZO MORALES MD, Ot L97.222 NON-PRESSURE CHRONIC ULCER OF LEFT CALF 03/13/2017 VINCENZO MORALES MD, Ot T65.222A TOXIC EFFECT OF TOBACCO CIGARETTES, SELF 03/15/2017 VINCENZO MORALES MD, Ot D68.51 ACTIVATED PROTEIN C RESISTANCE 03/15/2017 VINCENZO MORALES MD Ot I87.332 CHRONIC VENOUS HTN W ULCER AND INFLAMMAT 03/15/2017 VINCENZO MORALES MD, Ot L97.222 NON-PRESSURE CHRONIC ULCER OF LEFT CALF 03/15/2017 VINCENZO MORALES MD Ot T65.222A TOXIC EFFECT OF TOBACCO CIGARETTES, SELF 03/16/2017 VINCENZO MORALES MD, Ot D68.51 ACTIVATED PROTEIN C RESISTANCE 03/16/2017 VINCENZO MORALES MD, Ot I87.332 CHRONIC VENOUS HTN W ULCER AND INFLAMMAT 03/16/2017 VINCENZO MORALES MD, Ot L97.222 NON-PRESSURE CHRONIC ULCER OF LEFT CALF 03/16/2017 VINCENZO MORALES MD, Ot T65.222A TOXIC EFFECT OF TOBACCO CIGARETTES, SELF 03/21/2017 VINCENZO MORALES MD, Ot D68.51 ACTIVATED PROTEIN C RESISTANCE 03/21/2017 VINCENZO MORALES MD, Ot I87.332 CHRONIC VENOUS HTN W ULCER AND INFLAMMAT 03/21/2017 VINCENZO MORALES MD, Ot L97.222 NON-PRESSURE CHRONIC ULCER OF LEFT CALF 03/21/2017 VINCENZO MORALES MD, Ot T65.222A TOXIC EFFECT OF TOBACCO CIGARETTES, SELF Procedures There is no data. Results Test Result Range Bacteria identification in isolate by an aerobe culture - 01/18/17 15:16 Bacteria identification in isolate by anaerobe culture NG NR Gram stain microscopy - 01/18/17 15:16 GRAM STAIN RESULT NO WBC'S OR BACTERIA OBSERVED NRG Bacteria identification in wound by cult ure - 01/18/17 15:16 Bacteria identification in wound by culture NG NRG Complete blood count (CBC) with automate d white blood cell (WBC) differential - 01/18/17 16:08 Blood leukocytes automated count (number/volume) 12.8 10*3/uL 4.3-11.0 Blood erythrocytes automated count (number/volume) 5.20 10*6/uL 4.35-5.85 Venous blood hemoglobin measurement (mass/volume) 14.2 g/dL 13.3-17.7 Blood hematocrit (volume fraction) 41 % 40-54 Automated erythrocyte mean corpuscular volume 79 [ foz_us] 80-99 Automated erythrocyte mean corpuscular h emoglobin (mass per erythrocyte) 27 pg 25-34 Automated erythrocyte mean corpuscular h emoglobin concentration measurement (mass/volume) 35 g/dL 32-36 Automated erythrocyte distribution width ratio 17. 8 % 10.0- 14.5 Automated blood platelet count (count/volume) 512 10*3/uL 130-400 Automated blood platelet mean volume measurement 9.2 [foz_us] 7.4-10.4 Automated blood neutrophils/100 leukocytes 39 % 42-75 Automated blood lymphocytes/100 leukocytes 43 % 12-44 Blood monocytes/100 leukocytes 13 % 0-12 Automated blood eosinophils/100 leukocytes 4 % 0-10 Automated blood basophils/100 leukocytes 2 % 0-10 Blood neutrophils automated count (number/volume) 4.9 10*3 1.8-7.8 Blood lymphocytes automated count (number/volume) 5.5 10*3 1.0-4.0 Blood monocytes automated count (number/volume) 1. 6 10*3 0.0-1.0 Automated eosinophil count 0.5 10*3/uL 0 .0-0.3 Automated blood basophil count (count/volume) 0.2 10*3/uL 0.0-0.1 Comprehensive metabolic panel - 01/18/17 16:08 Serum or plasma sodium measurement (moles/volume) 137 mmol/L 135-145 Serum or plasma potassium measurement (moles/volume) 4.1 mmol/L 3.6-5.0 Serum or plasma chloride measurement (moles/volume) 99 mmol/L 98-107 Carbon dioxide 27 mmol/L 21-32 Serum or plasma anion gap determination (moles/volume) 11 mmol/L 5-14 Serum or plasma urea nitrogen measurement (mass/volume ) 6 mg/dL 7-18 Serum or plasma creatinine measurement (mass/volume) 0.99 mg/dL 0.60-1.30 Serum or plasma urea nitrogen/creatinine mass ratio 6 NRG Serum or plasma creatinine measurement w ith calculation of estimated glomerular filtration rate > NRG Serum or plasma glucose measurement (mass/volume) 86 mg/dL 70-105 Serum or plasma calcium measurement (mass/volume) 9.0 mg/dL 8.5-10.1 Serum or plasma total bilirubin measurement (mass/volu me) 0.6 mg/dL 0.1-1.0 Serum or plasma alkaline phosphatase david surement (enzymatic activity/volume) 128 U/L 40-136 Serum or plasma aspartate aminotransfera se measurement (enzymatic activity/volume) 19 U/L 5-34 Serum or plasma alanine aminotransferase measurement (enzymatic activity/volume) 15 U/L 0-55 Serum or plasma protein measurement (mass/volume) 7.4 g/dL 6.4-8.2 Serum or plasma albumin measurement (mass/volume) 3.6 g/dL 3.2-4.5 Complete blood count (CBC) with automate d white blood cell (WBC) differential - 11/25/19 18:46 Blood leukocytes automated count (number/volume) 24.1 10*3/uL 4.3-11.0 Blood erythrocytes automated count (number/volume) 5.30 10*6/uL 4.35-5.85 Venous blood hemoglobin measurement (mass/volume) 14.4 g/dL 13.3-17.7 Blood hematocrit (volume fraction) 40 % 40-54 Automated erythrocyte mean corpuscular volume 76 [ foz_us] 80-99 Automated erythrocyte mean corpuscular h emoglobin (mass per erythrocyte) 27 pg 25-34 Automated erythrocyte mean corpuscular h emoglobin concentration measurement (mass/volume) 36 g/dL 32-36 Automated erythrocyte distribution width ratio 16. 7 % 10.0- 14.5 Automated blood platelet count (count/volume) 453 10*3/uL 130-400 Automated blood platelet mean volume measurement 12.4 [foz_us] 7.4-10.4 Automated blood neutrophils/100 leukocytes 75 % 42-75 Automated blood lymphocytes/100 leukocytes 13 % 12-44 Blood monocytes/100 leukocytes 11 % 0-12 Automated blood eosinophils/100 leukocytes 1 % 0-10 Automated blood basophils/100 leukocytes 0 % 0-10 Blood neutrophils automated count (number/volume) 18.0 10*3 1.8-7.8 Blood lymphocytes automated count (number/volume) 3.2 10*3 1.0-4.0 Blood monocytes automated count (number/volume) 2. 7 10*3 0.0-1.0 Automated eosinophil count 0.1 10*3/uL 0 .0-0.3 Automated blood basophil count (count/volume) 0.1 10*3/uL 0.0-0.1 Comprehensive metabolic panel - 11/25/19 18:46 Serum or plasma sodium measurement (moles/volume) 136 mmol/L 135-145 Serum or plasma potassium measurement (moles/volume) 3.8 mmol/L 3.6-5.0 Serum or plasma chloride measurement (moles/volume) 96 mmol/L 98-107 Carbon dioxide 24 mmol/L 21-32 Serum or plasma anion gap determination (moles/volume) 16 mmol/L 5-14 Serum or plasma urea nitrogen measurement (mass/volume ) 7 mg/dL 7-18 Serum or plasma creatinine measurement (mass/volume) 0.80 mg/dL 0.60-1.30 Serum or plasma urea nitrogen/creatinine mass ratio 9 NRG Serum or plasma creatinine measurement w ith calculation of estimated glomerular filtration rate > NRG Serum or plasma glucose measurement (mass/volume) 417 mg/dL 70-105 Serum or plasma calcium measurement (mass/volume) 10.0 mg/dL 8.5-10.1 Serum or plasma total bilirubin measurement (mass/volu me) 0.8 mg/dL 0.1-1.0 Serum or plasma alkaline phosphatase david surement (enzymatic activity/volume) 170 U/L 40-136 Serum or plasma aspartate aminotransfera se measurement (enzymatic activity/volume) 20 U/L 5-34 Serum or plasma alanine aminotransferase measurement (enzymatic activity/volume) 26 U/L 0-55 Serum or plasma protein measurement (mass/volume) 7.9 g/dL 6.4-8.2 Serum or plasma albumin measurement (mass/volume) 3.9 g/dL 3.2-4.5 CALCIUM CORRECTED 10.1 mg/dL 8.5-10.1 PT panel in platelet poor plasma by coag ulation assay - 11/25/19 18:46 Prothrombin time (PT) in platelet poor plasma by coagu lation assay 26.3 s 12.2-14.7 INR in platelet poor plasma or blood by coagulation as say 2.4 0.8-1.4 Activated partial thromboplastin time (a PTT) in platelet poor plasma bycoagulation assay - 11/25/19 18:46 Activated partial thromboplastin time (a PTT) in platelet poor plasma bycoagulation assay 49 s 24-35 Fibrin D-dimer FEU measurement in platel et poor plasma (mass/volume) - 11/25/19 18:46 Fibrin D-dimer FEU measurement in platelet poor plasma (mass/volume) 0.35 ug/mL 0.00-0.49 Magnesium - 11/25/19 18:46 Magnesium 2.0 mg/dL 1.6-2.4 Manual absolute plasma cell count - 11/08 18:46 Blood monocytes/100 leukocytes 8 % NRG Manual blood segmented neutrophils/100 leukocytes 78 % NRG Blood band neutrophils/100 leukocytes 1 % NRG Manual blood lymphocytes/100 leukocytes 13 % NRG Blood jonah cells detection by light microscopy SLI GHT NRG Serum or plasma troponin i.cardiac measu rement (mass/volume) - 11/25/19 18:46 Serum or plasma troponin i.cardiac measurement (mass/v olume) < ng/mL <0.028 Myoglobin, serum - 11/25/19 18:46 Myoglobin, serum 61.8 ng/mL 10.0-92.0 Serum or plasma lithium measurement (mol es/volume) - 11/25/19 18:46 BNP PT 117.6 pg/mL <100.0 Arterial blood gas measurement - 0 18:51 Blood pCO2 48 mm[Hg] 35-45 Blood pO2 66 mm[Hg] 79-93 Arterial blood bicarbonate measurement (moles/volume) 30 mmol/L 23-27 Arterial blood base excess by calculation 5.1 mmol /L -2.5-2.5 Arterial blood oxygen saturation measurement 92 % 94-100 * Inhaled oxygen flow rate 2 NRG Arterial blood pH measurement with patient temperature correction 7.40 7.37-7.43 Arterial blood carbon dioxide, total measurement (mole s/volume) 31.4 mmol/L 21.0-31.0 Body site RIGHT RADIAL NRG Assessment of wrist artery patency prior to arterial p uncture POSITIVE NRG Setting of ventilation mode NO NR G Measurement of body temperature 37.3 NRG Encounters ACCT No. Visit Date/Time Discharge Status Pt. Type Provider Facility Loc./Unit Complaint [id number] 02/20/2017 11:23:00 017 23:59:59 [facility] Outpatient VINCENZO MORALES MD [facility] [id number] 02/13/2017 11:42:00 017 23:59:59 [facility] Outpatient VINCENZO MORALES MD [facility] [id number] 02/06/2017 11:16:00 017 23:59:59 CLS Outpatient VINCENZO MORALES MD [facility] [id number] 02/01/2017 16:44:00 017 23:59:59 CLS Outpatient VINCENZO MORALES MD [facility] RAD I70.242 [id number] 01/30/2017 10:10:00 017 23:59:59 CLS Outpatient VINECNZO MORALES MD [facility] [id number] 01/18/2017 15:49:00 017 23:59:59 CLS Outpatient VINCENZO MORALES MD [facility] LAB L97.222 [id number] 01/18/2017 13:53:00 23:59:59 CLS Outpatient VINCENZO MORALES MD [facility] [id number] 01/01/2017 14:42:00 15:25:00 DIS Emergency ROBERTA ECKERT [facility] ER SPIDER BITE L LEG [id number] 11/25/2019 19:55:[address] Inpatient EDNA HARDEN DO [facility] ICU EPIGLOTITTIS VS BACTERIAL LA RINGOTRACHEOBRONCHITIS [id number] 09/05/2011 12:33:00 Document Registration
[2019-11-25] MEDS ORDERED: LIDOCAINE TOPICAL 4% 50 ML BTL ONE (20:09)
[2019-11-25] MEDS ORDERED: LIDOCAINE 4% INJ (XYLOCAINE) 5ML AMP ONE (20:09)
--- NOTE | 2019-11-25 20:11 | Diagnostic Imaging Report ---
INDICATION: Shortness of breath COMPARISON: None. FINDINGS: Single view of the chest demonstrates small effusion atelectasis in the right base. The heart is prominent with slight central vascular congestion. There is no pneumothorax. Osseous structures are age-appropriate. IMPRESSION: 1. Atelectasis, small effusion, right base. 2. Cardiac enlargement with slight central vascular congestion. Dictated by: Dictated on workstation # [id number]
[2019-11-25] MEDS ORDERED: LIDOCAINE 4% INJ (XYLOCAINE) 5ML AMP INH ONE (20:15)
--- NOTE | 2019-11-25 20:15 | Diagnostic Imaging Report ---
CLINICAL INDICATION: Patient with shortness of air. EXAM: X-ray of the neck soft tissue, AP and lateral views. COMPARISON: None. FINDINGS AND IMPRESSION: 1: The epiglottic region is slightly malaligned on the lateral view. There is possible thickening of the epiglottis. There is also an area of tapering involving the mid tracheal region. These findings may be related to tracheitis. CT scan of the neck soft tissue with contrast would help better evaluate. 2: There is no prevertebral soft tissue swelling seen. 3: There are degenerative spurs involving the cervical spine anteriorly at the C3-C6 levels. Dictated by: Dictated on workstation # [id number]
--- NOTE | 2019-11-25 21:08 | Diagnostic Imaging Report ---
PROCEDURE: CT neck soft tissue with contrast. TECHNIQUE: Multiple contiguous axial images were obtained through the neck after the administration of contrast. Auto Exposure Controls were utilized during the CT exam to meet ALARA standards for radiation dose reduction. INDICATION: Shortness of air, sore throat COMPARISON: Radiographs from the same date FINDINGS: Parapharyngeal fat is symmetric and well-maintained. The visualized salivary glands are unremarkable. The thyroid gland is unremarkable. The epiglottis is mildly prominent. Small gas collection is identified adjacent to the trachea and esophagus on the right, best seen on series 4, image 67. No definitive connection to either the trachea or esophagus is present, though this appears to conform more to the shape of the esophagus. The true and false vocal cords are unremarkable. Mild mural thickening is noted associated with the most superior aspect of the cervical esophagus with associated small amount of internal fluid. 1.3 x 0.5 cm fluid collection is noted at the expected location of the most proximal esophagus. Mildly prominent bilateral cervical lymph nodes, particularly level II B lymph nodes are present bilaterally. This includes a lymph node on the right which measures up to 2.6 cm near the carotid bifurcation. No additional retropharyngeal fluid collection. No peritonsillar fluid collection. Noncalcified plaque within the left common carotid artery with approximately 40% narrowing. 1.3 cm irregular nodular density within the right upper lobe with extension to the pleural surface. No pneumothorax. Scattered osseous degenerative changes without acute osseous abnormality. Minimal opacification of some inferior left mastoid air cells. Otherwise, the visualized paranasal sinuses are clear. IMPRESSION: Mild mural thickening with associated fluid and edema associated with the most proximal aspect of the esophagus. This is associated with focal soft tissue gas immediately adjacent to the esophagus and trachea at this location. Therefore, this could relate to underlying injury/perforation involving the esophagus or trachea at this location. No definitive tract is identified on this examination. Fluoroscopic esophagram could be performed to evaluate if this relates to an underlying esophageal injury/perforation. Mildly prominent bilateral cervical lymph nodes. A 1.3 x 0.5 cm fluid collection is noted at the expected location of the most proximal esophagus. This is favored to relate to fluid within the esophagus. Phlegmon is an additional consideration. No internal gas to definitively suggest abscess. Additional findings as above. Findings discussed with Dr. Guerrero at 2121 on 11/25/2019. Dictated by: Dictated on workstation # [id number]
[2019-11-25 21:15] VITALS: BP 122/85
[2019-11-25 21:30] VITALS: BP 174/84
[2019-11-25] MEDS ORDERED: ENOXAPARIN 80 MG/0.8 ML (LOVENOX) SYR SC SCH (21:30)
[2019-11-25] MEDS ORDERED: LACTATED RINGERS 1,000 ML IV SCH (21:30)
[2019-11-25 21:45] VITALS: BP 147/75
[2019-11-25 22:00] VITALS: BP 148/71
[2019-11-25] MEDS ORDERED: cefTRIAXone FOR IV USE 2,000 MG in WATER (STERILE) FOR INJECTION 20 ML IV SCH (22:30)
[2019-11-25] MEDS ORDERED: inSUlin ASPART (NovoLOG) 1 UNIT/0.01 ML (CHARGE PER UNIT) SC SCH ×3 (22:45)
[2019-11-25 23:00] VITALS: BP 154/91
[2019-11-25 23:00] LABS: BILIRUBIN,URINE NEGATIVE (NEGATIVE); CLARITY,URINE CLEAR; COLOR,URINE YELLOW; GLUCOSE, URINE (UA) 3+ (NEGATIVE); KETONES,URINE 3+ (NEGATIVE); LEUKOCYTE ESTERASE ,URINE NEGATIVE (NEGATIVE); NITRITE,URINE NEGATIVE (NEGATIVE); PH,URINE 5.5 (5-9); PROTEIN,URINE TRACE (NEGATIVE)
[2019-11-25 23:12] LABS: BACTERIA,URINE NEGATIVE /HPF; RBC,URINE RARE /HPF
[2019-11-25 23:27] LABS: AMPHETAMINE SCREEN, URINE NEGATIVE (NEGATIVE); BARBITURATE SCREEN URINE NEGATIVE (NEGATIVE); BENZODIAZEPINES SCREEN URINE POSITIVE (NEGATIVE); CANNABINOID SCREEN, URINE POSITIVE (NEGATIVE); COCAINE SCREEN URINE NEGATIVE (NEGATIVE); METHADONE STAT NEGATIVE (NEGATIVE); METHAMPHETAMINE SCREEN URINE S NEGATIVE (NEGATIVE); OPIATE SCREEN URINE POSITIVE (NEGATIVE); OXYCODONE STAT NEGATIVE (NEGATIVE); PROPOXYPHENE STAT NEGATIVE (NEGATIVE); TRICYCLIC ANTIDEPRESSANTS SCRE NEGATIVE (NEGATIVE)
[2019-11-25] MEDS ORDERED: RT-epiNEPHrine (RACEMIC) 2.25% 0.5 ML VIAL INH PRN (23:30)
--- NOTE | 2019-11-25 23:34 | NUR ---
2334 - [facility] accepted flight and put on stand by. 2337 - [facility] called back and declined flight due to low visibility.
[2019-11-25] MEDS ORDERED: metroNIDAZOLE 500MG/100ML IVPB 100 ML IV ONE (23:45)
[2019-11-26] VITALS: BP 147/92
--- NOTE | 2019-11-26 00:15 | NUR ---
REPORT GIVEN TO PIPE DONOHUE AT
--- NOTE | 2019-11-26 00:37 | NUR ---
0037 - [facility] transport service called, they declined flight due to weather
--- NOTE | 2019-11-26 00:45 | NUR ---
0045 - [facility] called and accepted flight. Gave ETA of [phone]
[2019-11-26 01:00] VITALS: BP 178/99
--- NOTE | 2019-11-26 02:25 | NUR ---
UPDATED PT , NAFISA.
[2019-11-26] MEDS ORDERED: methylPREDNISolone 125 MG (Solu-MEDROL) VIAL IV SCH ×2 (03:00)
[2019-11-26] MEDS ORDERED: inSUlin ASPART (NovoLOG) 1 UNIT/0.01 ML (CHARGE PER UNIT) SC SCH ×2 (06:00)
[2019-11-26] MEDS ORDERED: CLINDAMYCIN 900 MG/50 ML IVPB 50 ML IV SCH (06:00)
--- NOTE | 2019-11-26 08:00 | NUR ---
Received dietary consult for MST score. Note pt has been discharged at this time. Elidia Bell, MS, RD, LD
[2019-11-26] MEDS ORDERED: cefTRIAXone 2,000 MG/SWFI 20 ML IV PUSH IV SCH ×2 (19:00)
== END 2019-11-26 02:03 | disposition short-term general hospital (02) | DRG 156 ==
LOC: EDUNIT# 18:30 → ER 18:31 → ICU 19:55
PROVIDERS: ADMIT Internal Medicine; ATTEND Internal Medicine
DX: J38.7 Other diseases of larynx (principal); Z88.5 Allergy status to narcotic agent
CPT/HCPCS: 36415; 70360; 70491; 71045; 80053; 80306; 81000; 82805; 82962; 83605; 83735; 83874; 83880; 84484; 85007; 85027; 85379; 85610; 85730; 87040; 87081; 87088; 93005; 93041; 94640; 99291

== ENCOUNTER 2021-09-01 13:29 | Emergency (ER) | payer MEDICARE, MEDICAID ==
[~2021-09-01] VITALS: Ht 175.3 cm; Wt 83.9 kg
[~2021-09-01 13:29] MED LIST changes: -CITA40TA11; +CITA40TA13; -CLIN150C17; +CLIN150C20; -OMEP40CA27; +OMEP40CA6; -OXYC-471 PO; +OXYC1TAB11 PO; +POTA-179; -POTA20TA15; -WARF1TAB82; +WRF1T
--- NOTE | 2021-09-01 13:32 | ED Chest Pain ---
General Chief Complaint: Chest Pain Stated Complaint: CHEST PAIN Source: patient Exam Limitations: no limitations (BROOKS GUNDERSON APRN) History of Present Illness Date Seen by Provider: Sep 01, 2021 Time Seen by Provider: 14:20 Initial Comments This is a well-appearing 51-year-old male who presented to the ER for complaints of left chest wall pain for the past three weeks. States 3 weeks ago he had a dry shaft fall on him and he has been having increasing pain since injury. He has not had any imaging since accident. Today he is having increasing pain breathing. Also states he has history of clotting disorder and takes Warfarin daily. denies fever, chills, cough, nausea, vomiting, diaphoresis, abdominal pain. (BROOKS GUNDERSON APRN) Allergies and Home Medications Allergies Coded Allergies: codeine (Verified Allergy, Severe, RASH, 01/01/17) Patient Home Medication List Home Medication List Reviewed: Yes (BROOKS GUNDERSON APRN) Buspirone HCl (Buspirone HCl) 10 Mg Tablet, (Reported) Entered as Reported by: VALERIO CAREY on 01/01/17 1500 Carvedilol (Carvedilol) 6.25 Mg Tablet, (Reported) Entered as Reported by: VALERIO CAREY on 01/01/17 1500 Citalopram Hydrobromide (Citalopram HBr) 40 Mg Tablet, (Reported) Entered as Reported by: VALERIO CAREY on 01/01/17 1500 Clindamycin HCl (Clindamycin HCl) 150 Mg Capsule, (Reported) Entered as Reported by: VALERIO CAREY on 01/01/17 1500 Clindamycin HCl (Cleocin HCl) 300 Mg Capsule, 300 MG PO QID Prescribed by: ROBERTA NATH on 01/01/17 152 Dapsone (Dapsone) 25 Mg Tablet, 50 MG PO BID Prescribed by: ROBERTA NATH on 01/01/17 152 Diazepam (Diazepam) 2 Mg Tablet, (Reported) Entered as Reported by: VALERIO CAREY on 01/01/17 1500 Lamotrigine (Lamotrigine) 200 Mg Tablet, (Reported) Entered as Reported by: VALERIO CAREY on 01/01/17 1500 Mesalamine (Apriso) 0.375 Gm Cap.er.24h, (Reported) Entered as Reported by: VALERIO CAREY on 01/01/17 1500 Methylprednisolone (Medrol Dose pack) 4 Mg Tab, 4 MG PO UD Prescribed by: BROOKS GUNDERSON on 09/01/21 1510 Omeprazole (Omeprazole) 40 Mg Capsule.dr, (Reported) Entered as Reported by: VALERIO CAREY on 01/01/17 1500 Oxycodone HCl/Acetaminophen (Oxycodone-Acetaminophen 5-325) 1 Each Tablet, 1 EACH PO Q4H PRN for pain Prescribed by: ROBERTA NATH on 01/01/17 1521 Potassium Chloride (Potassium Chloride) 20 Meq Tab.er.prt, (Reported) Entered as Reported by: VALERIO CAREY on 01/01/17 1500 Ranitidine HCl (Ranitidine HCl) 150 Mg Tablet, (Reported) Entered as Reported by: VALERIO CAREY on 01/01/17 1500 Thioridazine HCl (Thioridazine HCl) 50 Mg Tablet, (Reported) Entered as Reported by: VALERIO CAREY on 01/01/17 1500 Trazodone HCl (Trazodone HCl) 150 Mg Tablet, (Reported) Entered as Reported by: VALERIO CAREY on 01/01/17 1500 Warfarin Sodium (Warfarin Sodium) 1 Mg Tablet, (Reported) Entered as Reported by: VALERIO CAREY on 01/01/17 1500 [Benztropine] , (Reported) Entered as Reported by: VALERIO CAREY on 01/01/17 1500 Review of Systems Review of Systems Constitutional: no symptoms reported EENTM: No Symptoms Reported Respiratory: See HPI Cardiovascular: See HPI Gastrointestinal: No Symptoms Reported Genitourinary: No Symptoms Reported Musculoskeletal: see HPI Skin: no symptoms reported Psychiatric/Neurological: Anxiety, Depressed, Emotional Problems Endocrine: No Symptoms Reported Hematologic/Lymphatic: Blood Clots (BROOKS GUNDERSON APRN) Past Mljzyza-Tvhpaz-Cehvjq Hx Past Medical History Surgeries: Yes (SPLEENECTOMY, VENA CAVA FILTER) Respiratory: Yes Pulmonary Embolism Cardiac: Yes Deep Vein Thrombosis Neurological: No Genitourinary: No Gastrointestinal: No Musculoskeletal: Yes Chronic Back Pain Endocrine: No Cancer: No Psychosocial: Yes PTSD, Bipolar, Schizophrenia (BROOKS GUNDERSON APRN) Family Medical History DVT/PE (BROOKS GUNDERSON APRN) Physical Exam Vital Signs Vital Signs - First Documented 09/01/21 13:31 Pulse 88 Resp 16 B/P (MAP) 153/81 (105) Pulse Ox 96 O2 Delivery Room Air (RAJAT GILL MD) Vital Signs Capillary Refill : (BROOKS GUNDERSON APRN) Height, Weight, BMI Height: 5'9.00" Weight: 202lbs. oz. 91.916984mb; 24.27 BMI Method:Stated General Appearance: No Apparent Distress, WD/WN HEENT: PERRL/EOMI, Normal ENT Inspection, Pharynx Normal, Moist Mucous Membranes Neck: Full Range of Motion, Normal Inspection, Non Tender Respiratory: Lungs Clear, Normal Breath Sounds, No Accessory Muscle Use, No Respiratory Distress, Other (left chest wall tenderness ) Cardiovascular: Regular Rate, Rhythm, Normal Peripheral Pulses Gastrointestinal: Normal Bowel Sounds, Non Tender, Soft Extremity: Normal Capillary Refill, Normal Inspection, Normal Range of Motion Neurologic/Psychiatric: Alert, Oriented x3, No Motor/Sensory Deficits, Normal Mood/Affect Skin: Normal Color (BROOKS GUNDERSON APRN) Progress/Results/Core Measures Results/Orders Lab Results Laboratory Tests Test 09/01/21 13:37 09/01/21 14:22 Range/Units White Blood Count 13.0 H 4.3-11.0 10^3/uL Red Blood Count 4.74 4.30-5.52 10^6/uL Hemoglobin 13.3 13.3-17.7 g/dL Hematocrit 39 L 40-54 % Mean Corpuscular Volume 82 80-99 fL Mean Corpuscular Hemoglobin 28 25-34 pg Mean Corpuscular Hemoglobin Concent 34 32-36 g/dL Red Cell Distribution Width 16.0 H 10.0-14.5 % Platelet Count 569 H 130-400 10^3/uL Mean Platelet Volume 9.5 9.0-12.2 fL Immature Granulocyte % (Auto) 0 % Neutrophils (%) (Auto) 47 42-75 % Lymphocytes (%) (Auto) 37 12-44 % Monocytes (%) (Auto) 9 0-12 % Eosinophils (%) (Auto) 6 0-10 % Basophils (%) (Auto) 1 0-10 % Neutrophils # (Auto) 6.1 1.8-7.8 10^3/uL Lymphocytes # (Auto) 4.8 H 1.0-4.0 10^3/uL Monocytes # (Auto) 1.2 H 0.0-1.0 10^3/uL Eosinophils # (Auto) 0.7 H 0.0-0.3 10^3/uL Basophils # (Auto) 0.2 H 0.0-0.1 10^3/uL Immature Granulocyte # (Auto) 0.0 0.0-0.1 10^3/uL Prothrombin Time 27.0 H 12.2-14.7 SEC INR Comment 2.4 H 0.8-1.4 Activated Partial Thromboplast Time 53 H 24-35 SEC D-Dimer 0.40 0.00-0.49 UG/ML Sodium Level 136 135-145 MMOL/L Potassium Level 3.9 3.6-5.0 MMOL/L Chloride Level 98 98-107 MMOL/L Carbon Dioxide Level 26 21-32 MMOL/L Anion Gap 12 5-14 MMOL/L Blood Urea Nitrogen 6 L 7-18 MG/DL Creatinine 0.78 0.60-1.30 MG/DL Estimat Glomerular Filtration Rate 107 BUN/Creatinine Ratio 8 Glucose Level 212 H 70-105 MG/DL Calcium Level 9.0 8.5-10.1 MG/DL Corrected Calcium 9.1 8.5-10.1 MG/DL Magnesium Level 1.8 1.6-2.4 MG/DL Total Bilirubin 0.6 0.1-1.0 MG/DL Aspartate Amino Transf (AST/SGOT) 26 5-34 U/L Alanine Aminotransferase (ALT/SGPT) 37 0-55 U/L Alkaline Phosphatase 146 H 40-136 U/L Myoglobin 29.6 10.0-92.0 NG/ML Troponin I < 0.028 <0.028 NG/ML C-Reactive Protein High Sensitivity 2.68 H 0.00-0.50 MG/DL B-Type Natriuretic Peptide 22.4 <100.0 PG/ML Total Protein 7.2 6.4-8.2 GM/DL Albumin 3.9 3.2-4.5 GM/DL Smear Scan YES Erythrocyte Sedimentation Rate 17 0-30 MM/HR (RAJAT GILL MD) Vital Signs/I&O 09/01/21 09/01/21 13:31 15:26 Pulse 88 83 Resp 16 16 B/P (MAP) 153/81 (105) 145/82 Pulse Ox 96 95 O2 Delivery Room Air Room Air (RAJAT GILL MD) Progress Progress Note : Progress Note Patient examined in no acute distress. He does have lateral chest wall tenderness on exam. We will go ahead and obtain basic cardiac work-up with his extensive history. We will also obtain imaging of left ribs to evaluate for any fractures. Orders placed for fentanyl 50 mcg IV push for pain. Labs reviewed and are unremarkable. His x-ray does show fracture of his ninth left lateral rib. Reviewed findings with patient and spouse. Discharge plan of care reviewed and they are agreeable with plan, no concerns voiced. All questions answered. (BROOKS GUNDERSON APRN) Initial ECG Impression Date: Sep 01, 2021 Initial ECG Impression Time: 13:34 Initial ECG Rate: 88 Initial ECG Rhythm: Normal Sinus Initial ECG Intervals: Normal Initial ECG Impression: Normal (BROOKS GUNDERSON APRN) Diagnostic Imaging Comments [facility], [place] NAME: AWA MCKEON [facility] REC#: [id number] PT STATUS: DEP ER : 1970 PHYSICIAN: BROOKS GUNDERSON APRN ADMIT DATE: 09/01/21/ER Signed Date of Exam:09/01/21 RIBS/UNILATERAL WITH CHEST INDICATION: Chest pain and chest injury. TIME OF EXAM: 02:02 p.m. FINDINGS: There is a nondisplaced fracture involving the anterolateral left ninth rib. There may be an old healed rib fracture of the anterolateral left seventh rib. No other rib fractures are seen. Lungs are clear. No contusion, effusion or pneumothorax is seen. There is some scarring or atelectasis in the right base. IMPRESSION: Left-sided anterolateral ninth rib fracture. Dictated by: Dictated on workstation # [id number] Dict: 09/01/21 1436 Trans: 09/01/211556 [id number] [id number] Interpreted by: RASHID RODRÍGUEZ MD Electronically signed by: RASHID RODRÍGUEZ MD 09/01/21 155 (BROOKS GUNDERSON APRN) Departure Impression Primary Impression: Left rib fracture Disposition: 01 HOME, SELF-CARE Condition: Stable Departure-Patient Inst. Decision time for Depature: 15:10 (BROOKS GUNDERSON APRN) Referrals: NO,LOCAL PHYSICIAN (PCP/Family) Primary Care Physician Patient Instructions: Rib Fractures in Adults Add. Discharge Instructions: Plan: 1. Take steroids as directed with food. 2. Use incentive spirometer as directed 4x a day to reduce your risk of developing pneumonia. 3. May take your home Hydrocodone for pain as previously directed. 4. Follow up with your doctor for any persistent symptoms. 5. Avoid any heavy lifting, bending, twisting as this will worsen your symptoms. 6. Return for any new, concerning, or worsening symptoms. All discharge instructions reviewed with patient and/or family. Voiced understanding. Scripts Methylprednisolone (Medrol Dose pack) 4 Mg Tab 4 MG PO UD for 6 Days, #21 TAB 0 Refills as directed per dose pack Prov: BROOKS GUNDERSON APRN 09/01/21 ATTENDING PHYSICIAN NOTE: I was physically present as attending physician in the emergency department during the care of this patient, but I was not directly involved in the decision making or delivery of care for this patient. (RAJAT GILL MD) BROOKS GUNDERSON APRN Sep 01, 2021 13:32 RAJAT GILL MD Sep 04, 2021 06:47
[2021-09-01] MEDS ORDERED: ASPIRIN 81 MG CHEW (CHILDREN'S ASA) PO ONE (13:45)
[2021-09-01 13:50] LABS: BASOPHILS # (AUTO) 0.2 10^3/uL (0.0-0.1); BASOPHILS % (AUTO) 1 % (0-10); EOSINOPHILS # (AUTO) 0.7 10^3/uL (0.0-0.3); EOSINOPHILS % (AUTO) 6 % (0-10); HEMATOCRIT 39 % (40-54); HEMOGLOBIN 13.3 g/dL (13.3-17.7); LYMPHOCYTES # (AUTO) 4.8 10^3/uL (1.0-4.0); LYMPHOCYTES % (AUTO) 37 % (12-44); MEAN CORPUSCULAR HEMOGLOBIN 28 pg (25-34); MEAN CORPUSCULAR HGB CONC 34 g/dL (32-36); MEAN CORPUSCULAR VOLUME 82 fL (80-99); MEAN PLATELET VOLUME 9.5 fL (9.0-12.2); MONOCYTES # (AUTO) 1.2 10^3/uL (0.0-1.0); MONOCYTES % (AUTO) 9 % (0-12); NEUTROPHILS # (AUTO) 6.1 10^3/uL (1.8-7.8); NEUTROPHILS % (AUTO) 47 % (42-75); PLATELET COUNT 569 10^3/uL (130-400)
[2021-09-01 14:01] LABS: ALBUMIN 3.9 GM/DL (3.2-4.5)
[2021-09-01 14:02] LABS: CHLORIDE 98 MMOL/L (98-107); POTASSIUM 3.9 MMOL/L (3.6-5.0); SODIUM 136 MMOL/L (135-145)
[2021-09-01 14:04] LABS: GLUCOSE 212 MG/DL (70-105); TOTAL PROTEIN 7.2 GM/DL (6.4-8.2)
[2021-09-01 14:05] LABS: CARBON DIOXIDE 26 MMOL/L (21-32); INR 2.4 (0.8-1.4)
[2021-09-01 14:06] LABS: BILIRUBIN,TOTAL 0.6 MG/DL (0.1-1.0)
[2021-09-01 14:08] LABS: ALKALINE PHOSPHATASE 146 U/L (40-136); CREATININE SERUM 0.78 MG/DL (0.60-1.30); GFR ESTIMATED 107
[2021-09-01 14:09] LABS: BUN/CREATININE RATIO 8
[2021-09-01 14:11] LABS: ALANINE AMINOTRANSFERASE 37 U/L (0-55); MAGNESIUM 1.8 MG/DL (1.6-2.4); SMEAR SCAN COMMENT YES
[2021-09-01] MEDS ORDERED: fentaNYL INJ 100 MCG/2 ML AMP IVP ONE (14:15)
--- NOTE | 2021-09-01 14:41 | Diagnostic Imaging Report ---
INDICATION: Chest pain and chest injury. TIME OF EXAM: 02:02 p.m. FINDINGS: There is a nondisplaced fracture involving the anterolateral left ninth rib. There may be an old healed rib fracture of the anterolateral left seventh rib. No other rib fractures are seen. Lungs are clear. No contusion, effusion or pneumothorax is seen. There is some scarring or atelectasis in the right base. IMPRESSION: Left-sided anterolateral ninth rib fracture. Dictated by: Dictated on workstation # [id number]
[2021-09-01] MEDS ORDERED: NF-METHYLP PO (15:10)
[2021-09-01 15:26] VITALS: BP 145/82
== END 2021-09-01 15:26 | disposition home or self-care (01) ==
LOC: EDUNIT# 13:29 → ER 13:30
DX: S22.32XA Fracture of one rib, left side, initial encounter for closed fracture (principal); X58.XXXA Exposure to other specified factors, initial encounter
CPT/HCPCS: 36415; 71101; 80053; 83735; 83874; 83880; 84484; 85025; 85379; 85610; 85652; 85730; 86141; 93005; 93041

== ENCOUNTER 2022-11-05 23:50 | Emergency (ER) | payer MEDICARE, MEDICAID ==
[~2022-11-05] VITALS: Ht 175 cm; Wt 81.6 kg
[~2022-11-05 23:50] MED LIST changes: +NF-METHYLP PO
--- NOTE | 2022-11-05 23:58 | ED General ---
General Stated Complaint: HYPERGLYCEMIA Source of Information: Patient, EMS Exam Limitations: No Limitations History of Present Illness Date Seen by Provider: Nov 05, 2022 Time Seen by Provider: 23:47 Initial Comments 52-year-old male presents emergency department today for elevated blood sugar, confusion. Family members reported that he was "out of it." He was hallucinating and slurring his words. His blood sugar was greater than 500 on EMS arrival.. They gave him 500 cc of normal saline And blood sugar 428 on arrival here. The patient is alert and oriented on arrival here. He states he feels a little off. He denies any pain. No recent illness. States he takes long-acting insulin at night short acting insulin and metformin twice a day. All other systems reviewed and negative except documented per HPI. Voice recognition software was used to help create this chart Allergies and Home Medications Allergies Coded Allergies: codeine (Verified Allergy, Severe, RASH, 01/01/17) Patient Home Medication List Home Medication List Reviewed: Yes Buspirone HCl (Buspirone HCl) 10 Mg Tablet, (Reported) Entered as Reported by: VALERIO CAREY on 01/01/17 1500 Carvedilol (Carvedilol) 6.25 Mg Tablet, (Reported) Entered as Reported by: VALERIO CAREY on 01/01/17 1500 Citalopram Hydrobromide (Citalopram HBr) 40 Mg Tablet, (Reported) Entered as Reported by: VALERIO CAREY on 01/01/17 1500 Clindamycin HCl (Clindamycin HCl) 150 Mg Capsule, (Reported) Entered as Reported by: VALERIO CAREY on 01/01/17 1500 Clindamycin HCl (Cleocin HCl) 300 Mg Capsule, 300 MG PO QID Prescribed by: ROBERTA NATH on 01/01/17 152 Dapsone (Dapsone) 25 Mg Tablet, 50 MG PO BID Prescribed by: ROBERTA NATH on 01/01/17 152 Diazepam (Diazepam) 2 Mg Tablet, (Reported) Entered as Reported by: VALERIO CAREY on 01/01/17 1500 Lamotrigine (Lamotrigine) 200 Mg Tablet, (Reported) Entered as Reported by: VALERIO CAREY on 01/01/17 1500 Mesalamine (Apriso) 0.375 Gm Cap.er.24h, (Reported) Entered as Reported by: VALERIO CAREY on 01/01/17 1500 Methylprednisolone (Medrol Dose pack) 4 Mg Tab, 4 MG PO UD Prescribed by: BROOKS GUNDERSON on 09/01/21 1510 Omeprazole (Omeprazole) 40 Mg Capsule.dr, (Reported) Entered as Reported by: VALERIO CAREY on 01/01/17 1500 Oxycodone HCl/Acetaminophen (Oxycodone-Acetaminophen 5-325) 1 Each Tablet, 1 EACH PO Q4H PRN for pain Prescribed by: ROBERTA NATH on 01/01/17 1521 Potassium Chloride (Potassium Chloride) 20 Meq Tab.er.prt, (Reported) Entered as Reported by: VALERIO CAREY on 01/01/17 1500 Ranitidine HCl (Ranitidine HCl) 150 Mg Tablet, (Reported) Entered as Reported by: VALERIO CAREY on 01/01/17 1500 Thioridazine HCl (Thioridazine HCl) 50 Mg Tablet, (Reported) Entered as Reported by: VALERIO CAREY on 01/01/17 1500 Trazodone HCl (Trazodone HCl) 150 Mg Tablet, (Reported) Entered as Reported by: VALERIO CAREY on 01/01/17 1500 Warfarin Sodium (Warfarin Sodium) 1 Mg Tablet, (Reported) Entered as Reported by: VALERIO CAREY on 01/01/17 1500 [Benztropine] , (Reported) Entered as Reported by: VALERIO CAREY on 01/01/17 1500 Review of Systems Review of Systems Constitutional: see HPI Past Xbnbozp-Rcuuiy-Oudmng Hx Patient Social History Tobacco Use?: Yes Use of E-Cig and/or Vaping dev: No Substance use?: No Alcohol Use?: No Past Medical History Surgeries: Yes (SPLEENECTOMY, VENA CAVA FILTER) Respiratory: Yes Pulmonary Embolism Cardiac: Yes Deep Vein Thrombosis Neurological: No Genitourinary: No Gastrointestinal: No Musculoskeletal: Yes Chronic Back Pain Endocrine: No Cancer: No Psychosocial: Yes PTSD, Bipolar, Schizophrenia Family Medical History DVT/PE Physical Exam Vital Signs Vital Signs - First Documented 11/05/22 23:50 Temp 36.8 Pulse 75 Resp 16 B/P (MAP) 184/96 (125) Pulse Ox 97 O2 Delivery Room Air Capillary Refill : Height, Weight, BMI Height: 5'9.00" Weight: 202lbs. oz. 91.649640pk; 27.00 BMI Method:Stated General Appearance: No Apparent Distress, WD/WN Eyes: Bilateral Eye Normal Inspection, Bilateral Eye PERRL, Bilateral Eye EOMI HEENT: Normal ENT Inspection, Pharynx Normal Neck: Full Range of Motion, Non Tender, Supple Respiratory: Chest Non Tender, Lungs Clear, Normal Breath Sounds, No Accessory Muscle Use, No Respiratory Distress Cardiovascular: Regular Rate, Rhythm, No JVD, No Murmur, Normal Peripheral Pulses Gastrointestinal: Normal Bowel Sounds, Non Tender, Soft Extremity: Normal Capillary Refill, Normal Inspection, Normal Range of Motion, Non Tender, No Calf Tenderness Neurologic/Psychiatric: Alert, Oriented x3, No Motor/Sensory Deficits, Normal Mood/Affect, pop singer II-XII Norm as Tested Skin: Normal Color, Warm/Dry Progress/Results/Core Measures Suspected Sepsis SIRS Temperature: Pulse: Respiratory Rate: Laboratory Tests 11/05/22 23:56: White Blood Count 14.1H Blood Pressure / Mean: Laboratory Tests 11/05/22 23:56: Creatinine 1.07, Platelet Count 598H, Total Bilirubin 0.5 Results/Orders Lab Results Laboratory Tests Test 11/05/22 23:56 11/05/22 23:59 11/06/22 00:10 Range/Units White Blood Count 14.1 H 4.3-11.0 10^3/uL Red Blood Count 4.90 4.30-5.52 10^6/uL Hemoglobin 13.5 13.3-17.7 g/dL Hematocrit 38 L 40-54 % Mean Corpuscular Volume 78 L 80-99 fL Mean Corpuscular Hemoglobin 28 25-34 pg Mean Corpuscular Hemoglobin Concent 35 32-36 g/dL Red Cell Distribution Width 13.5 10.0-14.5 % Platelet Count 598 H 130-400 10^3/uL Mean Platelet Volume 10.2 9.0-12.2 fL Immature Granulocyte % (Auto) 0 % Neutrophils (%) (Auto) 65 42-75 % Lymphocytes (%) (Auto) 25 12-44 % Monocytes (%) (Auto) 6 0-12 % Eosinophils (%) (Auto) 2 0-10 % Basophils (%) (Auto) 2 0-10 % Neutrophils # (Auto) 9.1 H 1.8-7.8 10^3/uL Lymphocytes # (Auto) 3.6 1.0-4.0 10^3/uL Monocytes # (Auto) 0.9 0.0-1.0 10^3/uL Eosinophils # (Auto) 0.2 0.0-0.3 10^3/uL Basophils # (Auto) 0.2 H 0.0-0.1 10^3/uL Immature Granulocyte # (Auto) 0.1 0.0-0.1 10^3/uL Neutrophils % (Manual) 70 % Lymphocytes % (Manual) 25 % Monocytes % (Manual) 3 % Eosinophils % (Manual) 2 % Microcytosis SLIGHT Target Cells SLIGHT [place] Cells SLIGHT Acanthocytes SLIGHT Sodium Level 133 L 135-145 MMOL/L Potassium Level 4.4 3.6-5.0 MMOL/L Chloride Level 102 98-107 MMOL/L Carbon Dioxide Level 22 21-32 MMOL/L Anion Gap 9 5-14 MMOL/L Blood Urea Nitrogen 13 7-18 MG/DL Creatinine 1.07 0.60-1.30 MG/DL Estimat Glomerular Filtration Rate 83 BUN/Creatinine Ratio 12 Glucose Level 453 *H 70-105 MG/DL Calcium Level 9.4 8.5-10.1 MG/DL Corrected Calcium 9.5 8.5-10.1 MG/DL Total Bilirubin 0.5 0.1-1.0 MG/DL Aspartate Amino Transf (AST/SGOT) 17 5-34 U/L Alanine Aminotransferase (ALT/SGPT) 27 0-55 U/L Alkaline Phosphatase 170 H 40-136 U/L Total Protein 7.4 6.4-8.2 GM/DL Albumin 3.9 3.2-4.5 GM/DL Beta-Hydroxybutyrate (Chem panel) 0.09 0.00-0.27 MMOL/L Glucometer 419 *H 70-110 MG/DL Urine Color YELLOW Urine Clarity CLEAR Urine pH 6.5 5-9 Urine Specific [place] <=1.005 1.016-1.022 Urine Protein NEGATIVE NEGATIVE Urine Glucose (UA) 3+ H NEGATIVE Urine Ketones NEGATIVE NEGATIVE Urine Nitrite NEGATIVE NEGATIVE Urine Bilirubin NEGATIVE NEGATIVE Urine Urobilinogen 0.2 < = 1.0 MG/DL Urine Leukocyte Esterase NEGATIVE NEGATIVE Urine RBC (Auto) NEGATIVE NEGATIVE Urine RBC NONE /HPF Urine WBC NONE /HPF Urine Crystals NONE /LPF Urine Bacteria NEGATIVE /HPF Urine Casts NONE /LPF Urine Mucus NEGATIVE /LPF Urine Culture Indicated NO My Orders Orders - MEGHANAINA CampuzanoAlyce Falk DO Beta Hydroxybutyrate (11/05/22 23:54) Ua Culture If Indicated (11/05/22 23:54) Cbc With Automated Diff (11/05/22 23:54) Comprehensive Metabolic Panel (11/05/22 23:54) Ns Iv 1000 Ml (Sodium Chloride 0.9%) (11/06/22 00:00) Manual Differential (11/05/22 23:56) Vital Signs/I&O 11/05/22 23:50 Temp 36.8 Pulse 75 Resp 16 B/P (MAP) 184/96 (125) Pulse Ox 97 O2 Delivery Room Air 11/06/22 00:00 Intake Total 700 ml Balance 700 ml Capillary Refill : Departure Communication (Admissions) Patient is hemodynamically stable, alert and oriented on arrival here. He states he feels much better resume care. arrives and states she gave him 22 units of insulin just prior to him getting on the ambulance. She states he drinks a lot of soda which she thinks is likely causing his hyperglycemia. There is no evidence for infection or other emergent medical condition at this time. Blood sugars are trending down. They feel comfortable taking him home giving him more insulin at home. Given strict return precautions and discharged in stable condition Impression Primary Impression: Hyperglycemia Disposition: 01 HOME, SELF-CARE Condition: Stable Departure-Patient Inst. Referrals: NO,LOCAL PHYSICIAN (PCP/Family) Primary Care Physician Patient Instructions: Diabetes Type 1, Adult (DC) Add. Discharge Instructions: Continue home medications as prescribed. Refrain from drinking soda for possible. Return to the emergency department for any severe concerns for MEGHANASUKHPEÑACARLOS Falk DO Nov 05, 2022 23:58
[2022-11-06] MEDS ORDERED: NS IV 1000 ML 1,000 ML IV SCH
[2022-11-06 00:05] LABS: BASOPHILS # (AUTO) 0.2 10^3/uL (0.0-0.1); BASOPHILS % (AUTO) 2 % (0-10); EOSINOPHILS # (AUTO) 0.2 10^3/uL (0.0-0.3); EOSINOPHILS % (AUTO) 2 % (0-10); HEMATOCRIT 38 % (40-54); HEMOGLOBIN 13.5 g/dL (13.3-17.7); LYMPHOCYTES # (AUTO) 3.6 10^3/uL (1.0-4.0); LYMPHOCYTES % (AUTO) 25 % (12-44); MEAN CORPUSCULAR HEMOGLOBIN 28 pg (25-34); MEAN CORPUSCULAR HGB CONC 35 g/dL (32-36); MEAN CORPUSCULAR VOLUME 78 fL (80-99); MEAN PLATELET VOLUME 10.2 fL (9.0-12.2); MONOCYTES # (AUTO) 0.9 10^3/uL (0.0-1.0); MONOCYTES % (AUTO) 6 % (0-12); NEUTROPHILS # (AUTO) 9.1 10^3/uL (1.8-7.8); NEUTROPHILS % (AUTO) 65 % (42-75); PLATELET COUNT 598 10^3/uL (130-400); WHITE BLOOD COUNT 14.1 10^3/uL (4.3-11.0)
[2022-11-06 00:12] LABS: ALBUMIN 3.9 GM/DL (3.2-4.5)
[2022-11-06 00:13] LABS: POTASSIUM 4.4 MMOL/L (3.6-5.0)
[2022-11-06 00:14] LABS: CALCIUM 9.4 MG/DL (8.5-10.1)
[2022-11-06 00:15] LABS: TOTAL PROTEIN 7.4 GM/DL (6.4-8.2)
[2022-11-06 00:17] LABS: BILIRUBIN,TOTAL 0.5 MG/DL (0.1-1.0)
[2022-11-06 00:19] LABS: CREATININE SERUM 1.07 MG/DL (0.60-1.30)
[2022-11-06 00:20] LABS: BILIRUBIN,URINE NEGATIVE (NEGATIVE); CLARITY,URINE CLEAR; COLOR,URINE YELLOW; GLUCOSE, URINE (UA) 3+ (NEGATIVE); KETONES,URINE NEGATIVE (NEGATIVE); LEUKOCYTE ESTERASE ,URINE NEGATIVE (NEGATIVE); NITRITE,URINE NEGATIVE (NEGATIVE); PH,URINE 6.5 (5-9); PROTEIN,URINE NEGATIVE (NEGATIVE)
[2022-11-06 00:33] LABS: ACANTHOCYTES SLIGHT; BURR CELLS SLIGHT; EOSINOPHILS % (MANUAL) 2 %; LYMPHOCYTES % (MANUAL) 25 %; MICROCYTOSIS SLIGHT; MONOCYTES % (MANUAL) 3 %; NEUTROPHILS % (MANUAL) 70 %; TARGET CELLS SLIGHT
[2022-11-06 00:34] LABS: BACTERIA,URINE NEGATIVE /HPF
[2022-11-06 00:47] VITALS: BP 161/92
== END 2022-11-06 00:51 | disposition home or self-care (01) ==
LOC: EDUNIT# 23:50 → ER 23:52
DX: R73.9 Hyperglycemia, unspecified (principal); Z79.4 Long term (current) use of insulin; Z79.84 Long term (current) use of oral hypoglycemic drugs
CPT/HCPCS: 36415; 80053; 81000; 82010; 82947; 85007; 85027